=== PATIENT | male | born 1950 | race Caucasian/White ===

== ENCOUNTER 2018-11-09 16:45 | Observation (INO) | payer MEDICARE, OTHER ==
[~2018-11-09] VITALS: Ht 180.3 cm; Wt 63.2 kg
[2018-11-09 17:10] VITALS: BP 141/81
--- NOTE | 2018-11-09 17:10 | NUR ---
SOL MANUEL admitted to room 427-1, with an admitting diagnosis of , on 11/09/[address] MASTERSON OFFICE via W/C, accompanied by STAFF.SOL JACKSON introduced to surroundings, call light, bed controls, phone, TV, temperature control, lights, meal times, smoking policy, visitor policy, side rail policy, bathrooms and showers. Patient Rights given to patient in the handbook.SOL JACKSON verbalizes understanding that [facility] is not responsible for the loss or damage to any personal effects or valuables that are kept in the patients posession during their hospitalization. The following Patient Care Plans were discussed with the PT: Discharge Planning, PAIN CONTROL,IV THERAPY, and PRE-OP AND POST-OP. SOL JACKSON verbalizes understanding of Interdisciplinary Patient Education. Patient and/or family were informed about the Rapid Response Team and its purpose.
--- NOTE | 2018-11-09 17:55 | Diagnostic Imaging Report ---
INDICATION: Epistaxis and cough. TIME OF EXAM: 5:46 p.m. COMPARISON: No prior studies are available for comparison. FINDINGS: Left chest wall port has tip overlying the SVC. There is a moderate right effusion. There is infiltrate throughout the right lung. Left lung is clear. No pneumothorax is seen. IMPRESSION: Moderate right-sided effusion and right-sided pulmonary infiltrate. Dictated by: Dictated on workstation # [id number]
[2018-11-09] MEDS ORDERED: D5 1/2 NS W/KCL 20 MEQ/L 1,000 ML IV ONE (17:59)
[2018-11-09] MEDS ORDERED: D5 1/2 NS W/KCL 20 MEQ/L 1,000 ML IV SCH ×2 (18:00→20:52)
[2018-11-09 18:04] LABS: BASOPHILS % (AUTO) 1 % (0-10); EOSINOPHILS # (AUTO) 0.1 10^3/uL (0.0-0.3); EOSINOPHILS % (AUTO) 1 % (0-10); HEMATOCRIT 24 % (40-54); HEMOGLOBIN 7.9 G/DL (13.3-17.7); LYMPHOCYTES # (AUTO) 0.3 X 10^3 (1.0-4.0); LYMPHOCYTES % (AUTO) 6 % (12-44); MEAN CORPUSCULAR HEMOGLOBIN 31 PG (25-34); MEAN CORPUSCULAR HGB CONC 34 G/DL (32-36); MEAN CORPUSCULAR VOLUME 93 FL (80-99); MEAN PLATELET VOLUME 9.3 FL (7.4-10.4); MONOCYTES # (AUTO) 0.1 X 10^3 (0.0-1.0); MONOCYTES % (AUTO) 2 % (0-12); NEUTROPHILS # (AUTO) 4.9 X 10^3 (1.8-7.8); NEUTROPHILS % (AUTO) 91 % (42-75); PLATELET COUNT 169 10^3/uL (130-400); WHITE BLOOD COUNT 5.4 10^3/uL (4.3-11.0)
[2018-11-09] MEDS ORDERED: ceFAZolin INJECTION 1,000 MG ONE (18:07)
[2018-11-09] MEDS ORDERED: WATER (STERILE) FOR INJECTION 10 ML ONE (18:07)
[2018-11-09 18:22] LABS: BUN/CREATININE RATIO 26; CALCIUM 8.1 MG/DL (8.5-10.1); CARBON DIOXIDE 19 MMOL/L (21-32); CHLORIDE 107 MMOL/L (98-107); CREATININE SERUM 0.53 MG/DL (0.60-1.30); GFR ESTIMATED > 60; GLUCOSE 76 MG/DL (70-105); POTASSIUM 3.7 MMOL/L (3.6-5.0); SODIUM 135 MMOL/L (135-145)
[2018-11-09 18:31] LABS: EOSINOPHILS % (MANUAL) 2 %; LYMPHOCYTES % (MANUAL) 5 %; MONOCYTES % (MANUAL) 2 %; NEUTROPHILS % (MANUAL) 91 %
[2018-11-09 18:32] LABS: HYPOCHROMASIA MODERATE
--- OUTSIDE RECORDS SUMMARY | 2018-11-09 18:39 | XMS REPORT ---
Author Author [facility] Medical Staff Organization [facility] Address [address] [place], [place] [address] Phone [phone] Care Team Providers Care Children'S Tutor Nursery Name Role Phone NAOMI GOLDSTEIN, LEDY PP [phone] Summary purpose CCDA Sent to [facility] Chief Complaint and Reason for Visit Admit Diagnosis 1 C34.2 Z68.22 Problem list No authorized problems tracked for continuity of care are available for this visit. Encounters No authorized problems tracked for encounter diagnoses are available for this visit. Medications No medications recorded for this patient visit Allergies, adverse reactions, alerts Allergen Category Ingredient Status Reaction Severity Onset *MRSA Miscellaneous *MRSA Active *MRSA Drug *MRSA Active Immunizations No immunizations recorded for this patient visit Relevant diagnostic tests and/or laboratory data No authorized results are available for this patient visit History of procedures Procedure Code Code Type Description Date Performed Performing Physician 16666 CPT-4 COMPREHEN METABOLIC PANEL 12-25-2016 [facility] LAZAR 79670 CPT-4 LACTATE (LD) (LDH) ENZYME 12-25-2016 [facility] LAZAR 85727 CPT-4 ROUTINE VENIPUNCTURE 12-25-2016 LAVELLE LAZAR 51324 CPT-4 COMPLETE CBC W/AUTO DIFF WBC 12-25-2016 LAVELLE LAZAR 91573 CPT-4 X-RAY EYE FOR FOREIGN BODY 12-25-2016 LAVELLE LAZAR 31767 CPT-4 MRI BRAIN W/O & W/DYE 12-25-2016 LAVELLE LAZAR A9579 CPT-4 ABHISHEK-BASE MR CONTRAST NOS,1ML 12-25-2016 LAVELLE LAZAR Functional status No functional or cognitive status observations are available for this visit. Vital signs No authorized vital signs are available for this visit. Social history No Social History or smoking status observations were recorded for this visit. ( Unknown if ever smoked.) Treatment Plan No treatment plan text is available for this visit. Hospital discharge instructions No discharge instruction text is available for this visit.
--- OUTSIDE RECORDS SUMMARY | 2018-11-09 18:39 | XMS REPORT ---
Author Author [facility] Medical Staff Organization [facility] Address [address] [place], [place] [address] Phone [phone] Care Team Providers Care Medical Chemist Name Role Phone JOHN GOLDSTEIN, DREW PP [phone] DREW LOPEZ MD, PP [phone] Summary purpose CCDA Sent to [facility] Chief Complaint and Reason for Visit No authorized Reason for Visit (Admitting Diagnosis) is available for this visit. Problem list No authorized problems tracked for continuity of care are available for this visit. Encounters No authorized problems tracked for encounter diagnoses are available for this visit. Medications Discharge Medications Status Medication Directions Current aspirin 325 mg tablet 325 tab(s) oral ONE TIME A DAY Current hydrochlorothiazide 25 mg tablet 25 tab(s) oral ONE TIME A DAY Current meTOPROLOL tartrate 50 mg tablet 50 tab(s) oral TWO TIMES A DAY Current simvastatin 20 mg tablet 20 tab(s) oral ONE TIME A DAY bedtime Allergies, adverse reactions, alerts Allergen Category Ingredient Status Reaction Severity Onset *MRSA Miscellaneous *MRSA Active *MRSA Drug *MRSA Active Immunizations No immunizations recorded for this patient visit Relevant diagnostic tests and/or laboratory data No authorized results are available for this patient visit History of procedures Procedure Code Code Type Description Date Performed Performing Physician 83950 CPT-4 EXC FACE-MM MALIG+CHARLES 1.1-2 06-03-2016 DREW LOPEZ 20805 CPT-4 EXC H-F-NK-SP B9+CHARLES 1.1-2 06-03-2016 DREW LOPEZ Functional status No functional or cognitive status observations are available for this visit. Vital signs Type Value Date Respirations 18 89-73-222821:08 Pulse 80 96-06-638709:08 O2 Saturation 97% 01-65-137316:08 Systolic Blood Press 128mm/HG 46-37-677562:08 Diastolic Blood Pres 89mm/HG 08-76-419423:08 Temperature (Fahr) 97.7Degrees 60-30-891244:00 Social history No Social History or smoking status observations were recorded for this visit. ( Unknown if ever smoked.) Treatment Plan No treatment plan text is available for this visit. Hospital discharge instructions Diagnosis Excision of lesions on nose and left hand Diet as tolerated Activity Level as tolerated Med Dispensed by Pro None Follow up with Dr. Lopez Appointment Date and Thursday Follow up with Dr Lopez Appointment Date and 06/11/16 at 2:45pm Wound Care Keep wound completely dry for 24 hours and then keep clean and dry. Change bandage daily and place Neosporin.
--- OUTSIDE RECORDS SUMMARY | 2018-11-09 18:39 | XMS REPORT ---
Author Author [facility] Medical Staff Organization [facility] Address [address] [place], [place] [address] Phone [phone] Care Team Providers Care Drafter Tool Design Name Role Phone LEDY SALGADO MD PP [phone] Summary purpose CCDA Sent to [facility] Chief Complaint and Reason for Visit No [...] Code Type Description Date Performed Performing Physician 93725 CPT-4 CHEST X-RAY 03-09-2017 LEDY SALGADO Functional status No functional or cognitive status [...]
--- OUTSIDE RECORDS SUMMARY | 2018-11-09 18:39 | XMS REPORT ---
Author Author [facility] Medical Staff Organization [facility] Address [address] [place], [place] [address] Phone [phone] Care Team Providers Care Data Assistant Name Role Phone JOHN GOLDSTEIN, DREW PP [phone] NAOMI GOLSDTEIN, LEDY PP [phone] Summary purpose CCDA Sent to [facility] Chief Complaint and Reason for Visit Admit Diagnosis 1 SQUAMOUS CELL CARCINOMA OF LUNG Problem list No authorized problems tracked for [...] Code Type Description Date Performed Performing Physician 17838 CPT-4 COMPREHEN METABOLIC PANEL 12-24-2016 LEDY SALGADO 30730 CPT-4 BLOOD GASES: PH, PO2 & PCO2 12-24-2016 LEDY SALGADO 82548 CPT-4 WITHDRAWAL OF ARTERIAL BLOOD 12-24-2016 LEDY SALGADO 15416 CPT-4 ASSAY OF LACTIC ACID 12-24-2016 LEDY SALGADO 14237 CPT-4 ROUTINE VENIPUNCTURE 12-24-2016 LEDY SALGADO 38056 CPT-4 COMPLETE CBC W/AUTO DIFF WBC 12-24-2016 LEDY SALGADO Functional status No functional or [...]
--- OUTSIDE RECORDS SUMMARY | 2018-11-09 18:39 | XMS REPORT ---
Author Author [facility] Medical Staff Organization [facility] Address [address] [place], [place] [address] Phone [phone] Care Team Providers Care Speech Writer Name Role Phone JOHN GOLDSTEIN, DREW PP [phone] LEDY SALGADO MD PP [phone] Summary purpose CCDA Sent to [facility] Chief Complaint and Reason for Visit Admit Diagnosis 1 LUNG CONSOLIDATION Problem list No authorized problems tracked for [...] Code Type Description Date Performed Performing Physician 35077 CPT-4 CT THORAX W/O & W/DYE 12-16-2016 LEDY SALGADO 50831 CPT-4 PROTHROMBIN TIME 12-16-2016 LEDY SALGADO 34867 CPT-4 THROMBOPLASTIN TIME, PARTIAL 12-16-2016 LEDY SALGADO 00739 CPT-4 ROUTINE VENIPUNCTURE 12-16-2016 LEDY SALGADO Q9967 CPT-4 LOCM 300-399MG/ML IODINE,1ML 12-16-2016 LEDY SALGADO J7050 CPT-4 NS SOLUTION 250 CC INFUSION 12-16-2016 LEDY SALGADO Functional status No functional or [...]
--- OUTSIDE RECORDS SUMMARY | 2018-11-09 18:39 | XMS REPORT ---
Author Author [facility] Medical Staff Organization [facility] Address [address] [place], [place] [address] Phone [phone] Care Team Providers Care Laundry Machine Operator Name Role Phone NAOMI GOLDSTEIN, LEDY PP [phone] Summary purpose CCDA Sent to [facility] Chief Complaint and Reason for Visit No [...] Code Type Description Date Performed Performing Physician 83512 CPT-4 ROUTINE VENIPUNCTURE 04-08-2017 [facility] 78735 CPT-4 LACTATE (LD) (LDH) ENZYME 04-08-2017 [facility] 09521 CPT-4 COMPREHEN METABOLIC PANEL 04-08-2017 [facility] 29018 CPT-4 BL SMEAR W/DIFF WBC COUNT 04-08-2017 [facility] 14771 CPT-4 COMPLETE CBC, AUTOMATED 04-08-2017 [facility] 91202 CPT-4 CT THORAX W/DYE 04-08-2017 [facility] Q9967 CPT-4 LOCM 300-399MG/ML IODINE,1ML 04-08-2017 [facility] Functional status No functional or cognitive status [...]
--- OUTSIDE RECORDS SUMMARY | 2018-11-09 18:40 | XMS REPORT | Continuity of Care Document ---
Author Author [facility] Organization [facility] Address [address] [place] [address] Phone Unavailable Care Team Providers Care Cognos Architect Name Role Phone DREW LOPEZ MD PCP tel: Insurance Providers Payer Name Policy Number Subscriber Name Relationship [facility] [id number] Sol Welch 19 Self / Same As Patient Advance Directives Directive Response Recorded Date/Time Living Will No 01/06/17 6:36am Power of Inter Com Servicer No 01/06/17 6:36am Problems No problem information available. Medications Current Home Medications Medication Dose Units Route Directions Days/Qty Instructions Start Date Aspirin 81 Mg 81 Mg Oral Once A Day for Blood Thinning 01/05/17 Fluticasone Propionate (Flonase) 50 Mcg/Actuation 1 [place] Nasal Once A Day for Allergies 01/05/17 Hydrochlorothiazide 25 Mg 25 Mg Oral Once A Day for Hypertension Metoprolol Tartrate (Lopressor) 50 Mg 50 Mg Oral Twice A Day for Hypertension 01/05/17 Simvastatin 5 Mg 5 Mg Oral Once A Day for High Cholestrol 01/05/17 Mirtazapine 15 Mg 15 Mg Oral Everyday At 9 Pm for Depression Amoxicillin/Potassium Clav 875-125 1 Each Oral Twice A Day for Unk 01/05/17 Social History No social history. Hospital Discharge Instructions No hospital discharge instructions. Plan of Care Discharge Date 01/06/17 8:34am Prescriptions See Medication Section Functional Status No functional status results. Allergies, Adverse Reactions, Alerts No allergy information available. Immunizations No immunization records. Vital Signs Acute Vital Signs Vital Response Date/Time Temperature (Fahrenheit) 98 degrees F (97.6 - 99.5) 01/06/2017 8:05am Temperature (Calculated Celsius) 36.6696 degrees C (36.4 - 37.5) 01/06/2017 8 :05am Temperature Source Temporal Artery Scan 01/06/2017 8:05am Pulse Pulse Rate (adult) 86 beats per minute (60 - 90) 01/06/2017 8:20am Oxygen Saturation Respiratory Rate 16 breaths per minute (12 - 24) 01/06/2017 8:20am O2 Sat by Pulse Oximetry 92 % (90 - 100) 01/06/2017 8:20am Blood Pressure 97/71 mm Hg 01/06/2017 8:20am Blood Pressure Mean 80 mm Hg 01/06/2017 8:20am Results No known relevant diagnostic tests, laboratory data and/or discharge summary. Procedures Procedure Status Date Provider(s) Insertion of tunneled catheter with subcutaneous port Active 01/06/17 TRISH PAYTON MD Encounters Encounter Location Arrival/Admit Date Discharge/Depart Date Attending Provider Departed [facility] 01/06/17 6:38am 01/06/17 8: 34am LAVELLE LAZAR V
--- OUTSIDE RECORDS SUMMARY | 2018-11-09 18:40 | XMS REPORT ---
Author Author [facility] Medical Staff Organization [facility] Address [address] [place], [place] [address] Phone [phone] Care Team Providers Care Journeyman Mechanic Name Role Phone JOHN GOLDSTEIN, DREW PP [phone] Summary purpose CCDA Sent to [facility] Chief Complaint and Reason for [...] Code Type Description Date Performed Performing Physician 60509 CPT-4 COMPREHEN METABOLIC PANEL 09-23-2016 DREW LOPEZ 33363 CPT-4 LIPID PANEL 09-23-2016 DREW LOPEZ G0103 CPT-4 PSA SCREENING 09-23-2016 DREW LOPEZ 99508 CPT-4 ASSAY OF TOTAL TESTOSTERONE 09-23-2016 DREW LOPEZ 73357 CPT-4 COMPLETE CBC W/AUTO DIFF WBC 09-23-2016 DREW LOPEZ 68380 CPT-4 ROUTINE VENIPUNCTURE 09-23-2016 DREW LOPEZ Functional status No functional or [...]
--- OUTSIDE RECORDS SUMMARY | 2018-11-09 18:40 | XMS REPORT ---
Author Author [facility] Medical Staff Organization [facility] Address [address] [place], [place] [address] Phone [phone] Care Team Providers Care Custodian Supervisor Name Role Phone JOHN GOLDSTEIN, DREW PP [phone] NAOMI GOLDSTEIN, LEDY PP [phone] Summary purpose CCDA Sent to [facility] Chief Complaint and Reason for Visit Admit Diagnosis 1 COPD NICOTINE DEPENDENCY Problem list No authorized problems tracked for [...] Code Type Description Date Performed Performing Physician 28830 CPT-4 COMPREHEN METABOLIC PANEL 12-15-2016 LEDY SALGADO 56279 CPT-4 MYCOPLASMA ANTIBODY 12-15-2016 LEDY SALGADO 61662 CPT-4 ROUTINE VENIPUNCTURE 12-15-2016 LEDY SALGADO 33007 CPT-4 COMPLETE CBC W/AUTO DIFF WBC 12-15-2016 LEDY SALGADO 52371 CPT-4 CHEST X-RAY 12-15-2016 LEDY SALGADO Functional status No functional or [...]
--- OUTSIDE RECORDS SUMMARY | 2018-11-09 18:40 | XMS REPORT ---
Author Author [facility] Medical Staff Organization [facility] Address [address] [place], [place] [address] Phone [phone] Care Team Providers Care Leather Cutter Name Role Phone DREW FERNANDES MD PP [phone] Summary purpose CCDA Sent to [facility] Chief Complaint and Reason for Visit No authorized Reason for Visit (Admitting Diagnosis) is available for this visit. Problem list No authorized problems tracked for continuity of care are available for this visit. Encounters No authorized problems tracked for encounter diagnoses are available for this visit. Medications Discharge Medications Status Medication Directions Current acyclovir 800 mg tablet 1 tab 5x/day x 5 days oral oral FIVE TIMES A DAY Current aspirin 325 mg tablet 325 tab(s) oral ONE TIME A DAY Current gabapentin 300 mg capsule 1 cap 1-3x/day oral oral BEDTIME Current hydrochlorothiazide 25 mg tablet 25 tab(s) oral ONE TIME A DAY Current meTOPROLOL tartrate 50 mg tablet 50 tab(s) oral TWO TIMES A DAY Current simvastatin 20 mg tablet 20 tab(s) oral ONE TIME A DAY bedtime Current traMADol 50 mg tablet 1 tab oral oral EVERY SIX HOURS NEEDED for pain Allergies, adverse reactions, alerts Allergen Category Ingredient Status Reaction Severity Onset *MRSA Miscellaneous *MRSA Active *MRSA Drug *MRSA Active Immunizations No immunizations recorded for this patient visit Relevant diagnostic tests and/or laboratory data No authorized results are available for this patient visit History of procedures Procedure Code Code Type Description Date Performed Performing Physician 39281 CPT-4 EMERGENCY DEPT VISIT 01-05-2016 DREW FERNANDES Functional status Cognitive Status Finding Observation Time Level of Consciousne Alert :40 Oriented to Person Yes 30-62-512140:[address] Yes :40 Oriented to Time Yes :40 Vital signs Type Value Date Respirations 20 04-23-800606:50 Pulse 69 :50 O2 Saturation 97% :50 Systolic Blood Press 151mm/HG :50 Diastolic Blood Pres 91mm/HG :50 Temperature (Fahr) 97.0Degrees :50 Height 71in :40 Weight 155LB :40 Social history Type Value Smoking Status UNKNOWN IF EVER SMOKED Treatment Plan No treatment plan text is available for this visit. Hospital discharge instructions Diagnosis Shingles Diet as tolerated Activity Level as tolerated Med Dispensed by Pro Prescriptions for Acyclovir, Gabapentin, and Tramadol were called in to [facility]. Please start these today Follow up with Dr. Fernandes Appointment Date and next week
--- OUTSIDE RECORDS SUMMARY | 2018-11-09 18:40 | XMS REPORT ---
Author Author [facility] Medical Staff Organization [facility] Address [address] [place], [place] [address] Phone [phone] Care Team Providers Care Printed Circuit Board Panels Deburrer Name Role Phone JOHN GOLDSTEIN, DREW PP [phone] LEDY SALGADO MD PP [phone] Summary purpose CCDA Sent to [facility] Chief Complaint and Reason for Visit [...] Code Type Description Date Performed Performing Physician 26093 CPT-4 BIOPSY, LUNG OR MEDIASTINUM 12-17-2016 LEDY SALGADO 14184 CPT-4 CT SCAN FOR NEEDLE BIOPSY 12-17-2016 LEDY SALGADO 60549 CPT-4 CULTURE, BACTERIA, OTHER 12-17-2016 LETA DANGELO 17649 CPT-4 CHEST X-RAY 12-17-2016 LETA DANGELO 03197 CPT-4 SMEAR, GRAM STAIN 12-17-2016 LETA DANGELO J7030 CPT-4 INFUSION, NS, 1000 CC 12-17-2016 LETA DANGELO J3010 CPT-4 FENTANYL CITRATE INJECITON 12-17-2016 LETA DANGELO Functional status No functional or cognitive status [...]
--- OUTSIDE RECORDS SUMMARY | 2018-11-09 18:40 | XMS REPORT ---
Author Author [facility] Medical Staff Organization [facility] Address [address] [place], [place] [address] Phone [phone] Care Team Providers Care Geothermal Plant Manager Name Role Phone DREW LOPEZ MD PP [phone] Summary purpose CCDA Sent to [facility] Chief Complaint and Reason for Visit No [...] Code Type Description Date Performed Performing Physician 00728 CPT-4 EMERGENCY DEPT VISIT 01-05-2016 DREW LOPEZ Functional status No functional or [...]
--- OUTSIDE RECORDS SUMMARY | 2018-11-09 18:40 | XMS REPORT ---
Author Author [facility] Medical Staff Organization [facility] Address [address] [place], [place] [address] Phone [phone] Care Team Providers Care Vp Strategic Planning Name Role Phone DREW LOPEZ MD PP [phone] DREW LOPEZ MD, PP [phone] Summary purpose CCDA Sent to [facility] Chief Complaint and Reason for Visit [...] Code Type Description Date Performed Performing Physician 11748 CPT-4 EXC FACE-MM B9+CHARLES 2.1-3 CM 11-29-2015 DREW LOPEZ 87167 CPT-4 TISSUE EXAM BY PATHOLOGIST 11-29-2015 DREW LOPEZ Functional status No functional or cognitive status observations are available for this visit. Vital signs Type Value Date Respirations 18 37-06-991168:20 Pulse 75 26-79-276124:20 O2 Saturation 93% 03-82-808820:20 Systolic Blood Press 129mm/HG 23-36-158452:20 Diastolic Blood Pres 85mm/HG 91-19-332354:20 Temperature (Fahr) 97.6Degrees 44-79-101289:23 Social history No Social History or smoking status observations were recorded for this visit. ( Unknown if ever smoked.) Treatment Plan No treatment plan text is available for this visit. Hospital discharge instructions Diagnosis Excision of lesion on left side of face Diet as tolerated Activity Level as tolerated Med Dispensed by Pro None Follow up with Dr Lopez Appointment Date and 12/04 at 3:00 pm Wound Care Keep wound completely dry for 24 hours and then keep clean and dry. Dr. Lopez will remove sutures in 1 week. Other Instructions Watch for signs of infection- such as redness, increase in pain, or fever. Notify Dr Lopez if these occur.
--- OUTSIDE RECORDS SUMMARY | 2018-11-09 18:41 | XMS REPORT | Continuity of Care Document ---
Author Author [facility] Organization [facility] Address Unknown Phone Unavailable Allergies Active Description Code Type Severity Reaction Onset Reported/Identified Relationship to Patient Clinical Status Yes No Known Medication Allergies Drug N/A N/A Yes *MRSA Miscellaneous Allergy N /A N/A 02/28/2010 Yes No Known Allergies [id number] Drug Allergy Unknown N/A 01/06/2017 Medications There is no data. 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, inc shoulder 06/03/2016 DREW LOPEZ MD L57.0 Actinic keratosis 06/03/2016 DREW LOPEZ MD L85.8 Other specified epidermal thickening 09/23/2016 DREW LOPEZ MD Z00.00 Encntr for general adult medical exam w/o abnormal findings 09/23/2016 DREW LOPEZ MD Z80.42 Family history of malignant neoplasm of prostate 12/15/2016 LEDY SALGADO MD F17.200 Nicotine dependence, unspecified, uncomplicated 12/15/2016 LEDY SALGADO MD J44.9 Chronic obstructive pulmonary disease, unspecified 12/15/2016 LEDY SALGADO MD R05 Cough 12/15/2016 LEDY SALGADO MD R07.89 Other chest pain 12/16/2016 LEDY SALGADO MD F17.200 Nicotine dependence, unspecified, uncomplicated 12/16/2016 LEDY SALGADO MD J18.1 Lobar pneumonia, unspecified organism 12/16/2016 LEDY SALGADO MD J44.9 Chronic obstructive pulmonary disease, unspecified 12/16/2016 LEDY SALGADO MD R05 Cough 12/17/2016 ANTOLIN GOLDSTEIN, LETA Casas R91.8 Other nonspecific abnormal finding of lung field 12/24/2016 LEDY SALGADO MD C34.90 Malignant neoplasm of unsp part of unsp bronchus or lung 12/25/2016 NAGI GOLDSTEIN LAVELLE V D C34.2 Malignant neoplasm of middle lobe, bronchus or lung 12/25/2016 NAGI GOLDSTEIN LAVELLE V D Z68.22 Body mass index (BMI) 22.0-22.9, adult 01/06/2017 LAZAR, LAVELLE V Other 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 NEOPLASM OF MIDDLE LOBE, BRONCHUS OR LUNG 01/27/2017 LAZAR, LAVELLE V Other 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 NEOPLASM OF MIDDLE LOBE, BRONCHUS OR LUNG 01/27/2017 LAZAR, LAVELLE V Other 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 NEOPLASM OF MIDDLE LOBE, BRONCHUS OR LUNG 01/27/2017 LAZAR, LAVELLE V Other 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 NEOPLASM OF MIDDLE LOBE, BRONCHUS OR LUNG 01/27/2017 LAZAR LAVELLE V Other D64.9 ANEMIA, UNSPECIFIED 02/10/2017 LAZAR, LAVELLE V Other 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 NEOPLASM OF MIDDLE LOBE, BRONCHUS OR LUNG 02/10/2017 LAZAR LAVELLE V Other 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 NEOPLASM OF MIDDLE LOBE, BRONCHUS OR LUNG 02/10/2017 LAZAR LAVELLE V Other 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 NEOPLASM OF MIDDLE LOBE, BRONCHUS OR LUNG 02/10/2017 LAZAR, LAVELLE V Other D64.9 ANEMIA, UNSPECIFIED 02/10/2017 LAZAR, LAVELLE V Other 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 NEOPLASM OF MIDDLE LOBE, BRONCHUS OR LUNG 02/10/2017 LAZAR, LAVELLE V Other D64.9 ANEMIA, UNSPECIFIED 02/10/2017 LAZAR, LAVELLE V Other 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 NEOPLASM OF MIDDLE LOBE, BRONCHUS OR LUNG 02/10/2017 LAZAR, LAVELLE V Other D64.9 ANEMIA, UNSPECIFIED 02/10/2017 LAZAR, LAVELLE V Other Z68.22 BODY MASS INDEX (BMI) 22.0-22.9, ADULT 02/10/2017 LAZAR, LAVELLE V Other 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 NEOPLASM OF MIDDLE LOBE, BRONCHUS OR LUNG 02/10/2017 LAZAR, LAVELLE V Other 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 NEOPLASM OF MIDDLE LOBE, BRONCHUS OR LUNG 02/10/2017 LAZAR, LAVELLE V Other 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 NEOPLASM OF MIDDLE LOBE, BRONCHUS OR LUNG 02/10/2017 LAZAR, LAVELLE V Other D64.9 ANEMIA, UNSPECIFIED 02/10/2017 LAZAR, LAVELLE V Other 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 NEOPLASM OF MIDDLE LOBE, BRONCHUS OR LUNG 02/10/2017 LAZAR, LAVELLE V Other D64.9 ANEMIA, UNSPECIFIED 02/10/2017 LAZAR, LAVELLE V Other 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 NEOPLASM OF MIDDLE LOBE, BRONCHUS OR LUNG 02/10/2017 LAZAR, LAVELLE V Other D64.9 ANEMIA, UNSPECIFIED 02/10/2017 LAZAR, LAVELLE V Other Z68.22 BODY MASS INDEX (BMI) 22.0-22.9, ADULT 02/10/2017 LAZAR, LAVELLE V Other 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 NEOPLASM OF MIDDLE LOBE, BRONCHUS OR LUNG 02/10/2017 LAZAR, LAVELLE V Other D64.9 ANEMIA, UNSPECIFIED 02/10/2017 LAZAR, LAVELLE V Other 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 NEOPLASM OF MIDDLE LOBE, BRONCHUS OR LUNG 02/10/2017 LAZAR, LAVELLE V Other D64.9 ANEMIA, UNSPECIFIED 02/10/2017 LZAAR, LAVELLE V Other Z68.22 BODY MASS INDEX (BMI) 22.0-22.9, ADULT 03/09/2017 NAOMI GOLDSTEIN, LEDY Casas C34.90 Malignant neoplasm of unsp part of unsp bronchus or lung 03/09/2017 NAOMI GOLDSTEIN, LEDY Casas R91.8 Other nonspecific abnormal finding of lung field 04/08/2017 NAGI GOLDSTEIN, LAVELLE V D C34.2 Malignant neoplasm of middle lobe, bronchus or lung 04/08/2017 NAGI GOLDSTEIN LAVELLE V D D64.9 Anemia, unspecified 07/27/2017 NAGI GOLDSTEIN LAVELLE V D C34.2 Malignant neoplasm of middle lobe, bronchus or lung 07/27/2017 NAGI GOLDSTEIN LAVELLE V D D64.9 Anemia, unspecified 08/06/2017 LETA DANGELO MD C34.2 Malignant neoplasm of middle lobe, bronchus or lung 08/06/2017 LETA DANGELO MD D64.9 Anemia, unspecified 08/06/2017 LETA DANGELO MD R79.1 Abnormal coagulation profile 08/06/2017 LETA DANGELO MD Z01.812 Encounter for preprocedural laboratory examination 09/09/2017 Other 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 NEOPLASM OF MIDDLE LOBE, BRONCHUS OR LUNG 09/09/2017 Other D64.9 ANEMIA, UNSPECIFIED 09/21/2017 SOLE CHADWICK Z87.891 Personal history of nicotine dependence 11/09/2017 P C342 Malignant neoplasm of middle lobe, bronchus or lung 11/09/2017 S J90 Pleural effusion , not elsewhere classified 02/02/2018 NAGI GOLDSTEIN LAVELLE V D C34.2 Malignant neoplasm of middle lobe, bronchus or lung 02/02/2018 NAGI GOLDSTEIN, LAVELLE V D 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 02/02/2018 NAGI GOLDSTEIN, LAVELLE V D D64.9 Anemia, unspecified 02/10/2018 LANCE SANTAMARIA MD C34.2 Malignant neoplasm of middle lobe, bronchus or lung 02/10/2018 LANCE SANTAMARIA MD C79.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 02/22/2018 NAGI GOLDSTEIN, LAVELLE V A C34.2 Malignant neoplasm of middle lobe, bronchus or lung 02/22/2018 NAGI GOLDSTEIN LAVELLE V A 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 04/05/2018 NAGI GOLDSTEIN LAVELLE V D Z45.1 Encounter for adjustment and management of infusion pump 04/20/2018 JOHN GOLDSTEIN, DREW Casas J90 Pleural effusion, not elsewhere classified 04/22/2018 LEAT DANGELO MD J90 Pleural effusion, not elsewhere classified 04/22/2018 LETA DANGELO MD Z01.818 Encounter for other preprocedural examination 05/21/2018 SOLE CHADWICK D C34.2 Malignant neoplasm of middle lobe, bronchus or lung 05/21/2018 SOLE CHADWICK D 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 06/10/2018 NAGI GOLDSTEIN LAVELLE V D C79.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 06/10/2018 NAGI GOLDSTEIN LAVELLE V D R53.83 Other fatigue 06/17/2018 NAGI GOLDSTEIN LAVELLE V D C34.2 Malignant neoplasm of middle lobe, bronchus or lung 06/17/2018 NAGI GOLDSTEIN LAVELLE V D 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 06/17/2018 NAGI GOLDSTEIN LAVELLE V D D64.9 Anemia, unspecified 06/17/2018 LAZAR MD, LAVELLE V D R53.83 Other fatigue 06/25/2018 SOLE CHADWICK C34.90 Malignant neoplasm of unsp part of unsp bronchus or lung 06/25/2018 SOLE CHADWICK 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 06/25/2018 SOLE CHADWICK C79.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 06/25/2018 SOLE CHADWICK R53.83 Other fatigue 06/26/2018 CATRACHITO OCHOA MD C34.90 Malignant neoplasm of unsp part of unsp bronchus or lung 06/26/2018 CATRACHITO OCHOA MD I31.3 Pericardial effusion (noninflammatory) 06/26/2018 CATRACHITO OCHOA MD J90 Pleural effusion, not elsewhere classified 06/26/2018 CATRACHITO OCHOA MD M53.3 Sacrococcygeal disorders, not elsewhere classified 06/26/2018 CATRACHITO OCHOA MD M89.8X9 Other specified disorders of bone, unspecified site 06/26/2018 CATRACHITO OCHOA MD R06.02 Shortness of breath 06/26/2018 CATRACHITO OCHOA MD R47.89 Other speech disturbances 06/27/2018 DREW LOPEZ MD C34.90 Malignant neoplasm of unsp part of unsp bronchus or lung 06/27/2018 DREW LOPEZ MD E78.5 Hyperlipidemia, unspecified 06/27/2018 DREW LOPEZ MD E87.1 Hypo-osmolality and hyponatremia 06/27/2018 DREW LOPEZ MD F17.200 Nicotine dependence, unspecified, uncomplicated 06/27/2018 DREW LOPEZ MD I10 Essential (primary) hypertension 06/27/2018 DREW LOPEZ MD R09.02 Hypoxemia 06/27/2018 DREW LOPEZ MD R20.0 Anesthesia of skin 06/27/2018 DREW LOPEZ MD R60.9 Edema, unspecified 06/27/2018 DREW LOPEZ MD Z23 Encounter for immunization 07/09/2018 NAGI GOLDSTEIN, LAVELLE V D C34.2 Malignant neoplasm of middle lobe, bronchus or lung 07/09/2018 NAGI GOLDSTEIN LAVELLE V D C79.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 07/09/2018 NAGI GOLDSTEIN LAVELLE V D R53.83 Other fatigue 07/21/2018 NAGI GOLDSTEIN LAVELLE V D C34.90 Malignant neoplasm of unsp part of unsp bronchus or lung 07/21/2018 NAGI GOLDSTEIN LAVELLE V D 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 07/21/2018 NAGI GOLDSTEIN LAVELLE V D C79.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 07/21/2018 NAGI GOLDSTEIN LAVELLE V D R53.83 Other fatigue 08/04/2018 NAGI GOLDSTEIN LAVELLE V D C34.2 Malignant neoplasm of middle lobe, bronchus or lung 08/04/2018 NAGI GOLDSTEIN LAVELLE V D 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 08/04/2018 NAGI GOLDSTEIN LAVELLE V D C79.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 08/04/2018 NAGI GOLDSTEIN LAVELLE V D D64.9 Anemia, unspecified 08/04/2018 NAGI GOLDSTEIN LAVELLE V D R53.83 Other fatigue 08/11/2018 NAGI GOLDSTEIN LAVELLE V D C34.92 Malignant neoplasm of unsp part of left bronchus or lung 08/11/2018 NAGI GOLDSTEIN LAVELLE V D 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 08/11/2018 NAGI GOLDSTEIN LAVELLE V D C79.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 08/11/2018 NAGI GOLDSTEIN LAVELLE V D R53.83 Other fatigue 08/16/2018 NAGI GOLDSTEIN LAVELLE V D C34.2 Malignant neoplasm of middle lobe, bronchus or lung 08/16/2018 NAGI GOLDSTEIN LAVELLE V D 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 08/16/2018 NAGI GOLDSTEIN LAVELLE V D C79.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 08/16/2018 NAGI GOLDSTEIN LAVELLE V D D64.9 Anemia, unspecified 08/16/2018 NAGI GOLDSTEIN LAVELLE V D R53.83 Other fatigue 09/01/2018 NAGI GOLDSTEIN LAVELLE V D C34.2 Malignant neoplasm of middle lobe, bronchus or lung 09/01/2018 NAGI GOLDSTEIN LAVELLE V D 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 09/01/2018 NAGI GOLDSTEIN LAVELLE V Augusto C79.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 09/01/2018 NAGI GOLDSTEIN LAVELLE V D D64.9 Anemia, unspecified 09/01/2018 NAGI GOLDSTEIN LAVELLE V D R53.83 Other fatigue 09/15/2018 NAGI GOLDSTEIN LAVELLE V D C34.2 Malignant neoplasm of middle lobe, bronchus or lung 09/15/2018 NAGI GOLDSTEIN LAVELLE V D C79.2 Secondary malignant neoplasm of skin 09/15/2018 NAGI GOLDSTEIN LAVELLE V Augusto C79.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 09/15/2018 NAGI GOLDSTEIN LAVELLE V D R53.83 Other fatigue 09/22/2018 NAGI GOLDSTEIN LAVELLE V D C34.90 Malignant neoplasm of unsp part of unsp bronchus or lung 09/22/2018 NAGI GOLDSTEIN LAVELLE V D 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 09/22/2018 NAGI GOLDSTEIN LAVELLE V Augusto C79.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 09/22/2018 NAGI GOLDSTEIN LAVELLE V D R53.83 Other fatigue 10/04/2018 Other 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 NEOPLASM OF MIDDLE LOBE, BRONCHUS OR LUNG 10/04/2018 Other C79.2 SECONDARY MALIGNANT NEOPLASM OF SKIN 10/04/2018 Other C79.51 SECONDARY MALIGNANT NEOPLASM OF BONE 10/04/2018 Other R53.83 OTHER FATIGUE 10/06/2018 NAGI GOLDSTEIN LAVELLE V D C34.2 Malignant neoplasm of middle lobe, bronchus or lung 10/06/2018 NAGI GOLDSTEIN LAVELLE V D C79.2 Secondary malignant neoplasm of skin 10/06/2018 NAGI GOLDSTEIN LAVELLE V D C79.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 10/06/2018 NAGI GOLDSTEIN LAVELLE V D R53.83 Other fatigue 10/13/2018 NAGI GOLDSTEIN LAVELLE V D C34.2 Malignant neoplasm of middle lobe, bronchus or lung 10/13/2018 NAGI GOLDSTEIN LAVELLE V D 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 10/13/2018 NAGI GOLDSTEIN, LAVELLE V D C79.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 10/13/2018 NAGI GOLDSTEIN, LAVELLE V D D64.9 Anemia, unspecified 10/13/2018 NAGI GOLDSTEIN, LAVELLE V D R53.83 Other fatigue Procedures Code Description [place] [address] CULTURE, BACTERIA, OTHER LADONNA RODRIGUEZ 02/04/2013 95811 CULTURE TYPE, IMMUNOLOGIC LADONNA RODRIGUEZ L 02/04/2013 48090 SMEAR, GRAM STAIN LADONNA RODRIGUEZ 02/04/2013 29527 ROUTINE VENIPUNCTURE JOHN GOLDSTEIN, DREW Lara 02/04/2014 83160 COMPREHEN METABOLIC PANEL JOHN GOLDSTEIN, DREW Lara 02/04/2014 73060 LIPID PANEL JOHN GOLDSTEIN, DREW Lara 02/04/2014 97488 COMPLETE CBC W/AUTO DIFF WBC JOHN GOLDSTEIN, DREW Lara 02/04/2014 G0103 PSA SCREENING JOHN GOLDSTEIN, DREW Lara 02/04/2014 81083 EXC FACE-MM B9+CHARLES 2.1-3 CM DREW LOPEZ MD 11/29/2015 42068 TISSUE EXAM BY PATHOLOGIST JOHN GOLDSTEIN, DREW Lara 11/29/2015 L9999 CINDY ALERT CODE JOHN GOLDSTEIN, DREW Lara 11/29/2015 56400 EMERGENCY DEPT VISIT DREW LOPEZ MD 01/05/2016 71329 EMERGENCY DEPT VISIT DREW LOPEZ MD 01/05/2016 03314 EXC H-F-NK-SP B9+CHARLES 1.1-2 JOHN GOLDSTEIN, DREW Lara 06/03/2016 91684 EXC FACE-MM B9+CHARLES 1.1-2 CM JOHN GOLDSTEIN, DREW Lara 06/03/2016 25672 EXC F/E/E/N/L MAL+MRG 1.1-2 DREW LOPEZ MD 06/03/2016 04763 ROUTINE VENIPUNCTURE DREW LOPEZ MD 09/23/2016 41355 COMPREHEN METABOLIC PANEL JOHN GOLDSTEIN, DREW Lara 09/23/2016 75138 LIPID PANEL JOHN GOLDSTEIN, DREW Lara 09/23/2016 64871 ASSAY OF TOTAL TESTOSTERONE DREW LOPEZ MD 09/23/2016 62751 COMPLETE CBC W/AUTO DIFF WBC DREW LOPEZ MD 09/23/2016 G0103 PSA SCREENING DREW LOPEZ MD 09/23/2016 66861 ROUTINE VENIPUNCTURE LEDY SALGADO MD 12/15/2016 56216 CHEST X-RAY 2VW FRONTAL& LATL YAJAIRA SALGADO MDWALDTj Reed 12/15/2016 57599 COMPREHEN METABOLIC PANEL YAJAIRA SALGADO MDWALDTj Reed 12/15/2016 41693 COMPLETE CBC W/AUTO DIFF WBC YAJAIRA SALGADO MDWALDTj Reed 12/15/2016 96750 MYCOPLASMA ANTIBODY YAJAIRA SALGADO MDWALDO Brianna 12/15/2016 93339 ROUTINE VENIPUNCTURE LEDY SALGADO MD 12/16/[address] THORAX W/O & W/DYE SURINDER SALGADO MDO Brianna 12/16/2016 89648 PROTHROMBIN TIME YAJAIRA SALGADO MDWALDTj Reed 12/16/2016 92549 THROMBOPLASTIN TIME PARTIAL YAJAIRA SALGADO MDWALDTj Reed 12/16/2016 J7050 NORMAL SALINE SOLUTION NADIAUS LEDY SALGADO MD 12/16/2016 Q9967 LOCM 300-399MG/ML IODINE, 1ML YAJAIRA SALGADO MDWALDTj Reed 12/16/2016 13500 PERCUT BX LUNG/MEDIASTINUM YAJAIRA SALGADO MDWALDTj Reed 12/17/2016 80038 CHEST X-RAY 1 VIEW FRONTAL LETA DANGELO MD 12/17/[address] SCAN FOR NEEDLE BIOPSY LEDY SALGADO MD 12/17/2016 62314 CULTURE OTHR SPECIMN AEROBIC LETA DANGELO MD 12/17/2016 44420 SMEAR GRAM STAIN LETA DANGELO MD 12/17/2016 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 LETA DANGELO MD 12/17/2016 J7030 NORMAL SALINE SOLUTION INFUS LETA DANGELO MD 12/17/2016 11819 ROUTINE VENIPUNCTURE LEDY SALGADO MD 12/24/2016 82543 WITHDRAWAL OF ARTERIAL BLOOD LEDY SALGADO MD 12/24/2016 36863 COMPREHEN METABOLIC PANEL LEDY SALGADO MD 12/24/2016 13999 BLOOD GASES ANY COMBINATION NAOMI GOLDSTEIN, [facility] 12/24/2016 26554 ASSAY OF LACTIC ACID NAOMI GOLDSTEIN, [facility] 12/24/2016 76431 COMPLETE CBC W/AUTO DIFF WBC NAOMI GOLDSTEIN, [facility] 12/24/2016 07504 ROUTINE VENIPUNCTURE NAGI GOLDSTEIN, [facility] V 12/25/2016 36652 X-RAY EYE FOR FOREIGN BODY NAGI GOLDSTEIN, [facility] V 12/25/2016 11312 MRI BRAIN STEM W/O & W/DYE NAGI GOLDSTEIN, [facility] V 12/25/2016 90002 COMPREHEN METABOLIC PANEL NAGI GOLDSTEIN, [facility] V 12/25/2016 07460 LACTATE (LD) (LDH) ENZYME NAGI GOLDSTEIN, [facility] V 12/25/2016 94821 COMPLETE CBC W/AUTO DIFF WBC NAGI GOLDSTEIN, [facility] V 12/25/2016 A9579 ABHISHEK-BASE MR CONTRAST NOS, 1ML NAGI GOLDSTEIN, [facility] V 12/25/2016 37634 CHEST X-RAY 2VW FRONTAL& LATL NAOMI GOLDSTEIN, [facility] 03/09/2017 74712 ROUTINE VENIPUNCTURE NAGI GOLDSTEIN, [facility] V 04/08/[address] THORAX W/DYE NAGI OGLDSTEIN, [facility] V 04/08/2017 96591 COMPREHEN METABOLIC PANEL NAGI GOLDSTEIN, [facility] V 04/08/2017 79074 LACTATE (LD) (LDH) ENZYME NAGI GOLDSTEIN, [facility] V 04/08/2017 55749 BL SMEAR W/DIFF WBC COUNT NAGI GOLDSTEIN, [facility] V 04/08/2017 14663 COMPLETE CBC AUTOMATED NAGI GOLDSTEIN, [facility] V 04/08/2017 Q9967 LOCM 300-399MG/ML IODINE, 1ML NAGI GOLDSTEIN, [facility] V 04/08/2017 01682 ROUTINE VENIPUNCTURE NAGI GOLDSTEIN, [facility] V 07/27/[address] THORAX W/DYE NAGI GOLDSTEIN, [facility] V 07/27/2017 14104 COMPREHEN METABOLIC PANEL NAGI GOLDSTEIN, [facility] V 07/27/2017 12407 LACTATE (LD) (LDH) ENZYME NAGI GOLDSTEIN, [facility] V 07/27/2017 31460 COMPLETE CBC W/AUTO DIFF WBC NAGI GOLDSTEIN, LAVELLE V 07/27/2017 Q9967 LOCM 300-399MG/ML IODINE, 1ML NAGI GOLDSTEIN, [facility] V 07/27/2017 86574 ASPIRATE PLEURA W/ IMAGING NAGI GOLDSTEIN, [facility] V 08/06/2017 01528 ROUTINE VENIPUNCTURE NAGI GOLDSTEIN, [place]ELLE V 08/06/2017 24808 GLUCOSE OTHER FLUID LETA DANGELO MD 08/06/2017 20210 LACTATE (LD) (LDH) ENZYME LETA DANGELO MD 08/06/2017 45844 ASSAY OF PROTEIN OTHER LETA DANGELO MD 08/06/2017 00442 COMPLETE CBC W/AUTO DIFF WBC NAGI GOLDSTEIN, [facility] V 08/06/2017 20632 PROTHROMBIN TIME NAGI GOLDSTEIN, [facility] V 08/06/2017 08776 THROMBOPLASTIN TIME PARTIAL NAGI GOLDSTEIN, [facility] V 08/06/2017 62336 CYTOPATH CONCENTRATE TECH NAGI GOLDSTEIN, [facility] V 08/06/2017 00000 US EXAM ABDO BACK WALL ZACARIAS SOLE CHADWICK 09/21/2017 61445 MRI BRAIN STEM W/O & W/DYE NAGI GOLDSTEIN, [facility] V 02/02/2018 A9579 ABHISHEK-BASE MR CONTRAST NOS, 1ML NAGI GOLDSTEIN, [facility] V 02/02/2018 15296 BONE IMAGING WHOLE BODY SAM GOLDSTEIN, LANCE Farris 02/10/2018 A9503 TC99M MEDRONATE SAM GOLDSTEIN, LANCE Farris 02/10/2018 59319 ROUTINE VENIPUNCTURE NAGI GOLDSTEIN, [facility] V 02/22/2018 58811 COMPREHEN METABOLIC PANEL NAGI GOLDSTEIN, [facility] V 02/22/2018 06672 LACTATE (LD) (LDH) ENZYME NAGI GOLDSTEIN, [facility] V 02/22/2018 67856 ASSAY OF TOTAL THYROXINE NAGI GOLDSTEIN, [facility] V 02/22/2018 35435 ASSAY OF FREE THYROXINE NAGI GOLDSTEIN, [facility] V 02/22/2018 56561 ASSAY THYROID STIM HORMONE NAGI GOLDSTEIN, [place] V 02/22/2018 59424 COMPLETE CBC W/AUTO DIFF WBC NAGI GOLDSTEIN, [facility] V 02/22/2018 65694 X-RAY EXAM CHEST 2 VIEWS NAGI GOLDSTEIN, [facility] V 04/05/2018 46798 X-RAY EXAM CHEST 2 VIEWS JOHN GOLDSTEIN, [facility] B 04/20/2018 57606 ASPIRATE PLEURA W/ IMAGING ANTOLIN GOLDSTEIN, LETA Shah 04/22/2018 94749 ROUTINE VENIPUNCTURE ANTOLIN GOLDSTEIN, LETA Shah 04/22/2018 10785 BL SMEAR W/DIFF WBC COUNT ANTOLIN GOLDSTEIN, LETA Shah 04/22/2018 33325 COMPLETE CBC AUTOMATED ANTOLIN GOLDSTEIN, LETA Shah 04/22/2018 18568 PROTHROMBIN TIME ANTOLIN GOLDSTEIN, LETA Shah 04/22/2018 84621 THROMBOPLASTIN TIME PARTIAL ANTOLIN GOLDSTEIN, LETA Shah 04/22/2018 77491 ROUTINE VENIPUNCTURE DARRELLRANJEET ESCALANTE SOLE D 05/21/2018 16639 METABOLIC PANEL TOTAL CA DARRELL ESCALANTE SOLE D 05/21/2018 28173 ROUTINE VENIPUNCTURE JOHN GOLDSTEIN, [facility] Jane 05/24/2018 91542 METABOLIC PANEL TOTAL CA JOHN GOLDSTEIN, [facility] B 05/24/2018 48692 ROUTINE VENIPUNCTURE NAGI GOLDSTEIN, [place]LE V 06/02/2018 72892 COMPREHEN METABOLIC PANEL NAGI GOLDSTEIN, [place] V 06/02/2018 13021 LACTATE (LD) (LDH) ENZYME NAGI GOLDSTEIN, [place] V 06/02/2018 50570 BL SMEAR W/DIFF WBC COUNT NAGI GOLDSTEIN, [place] V 06/02/2018 55282 COMPLETE CBC AUTOMATED NAGI GOLDSTEIN, [place] V 06/02/2018 36530 ROUTINE VENIPUNCTURE NAGI GOLDSTEIN, [place] V 06/10/2018 58309 COMPREHEN METABOLIC PANEL NAGI GOLDSTEIN, [place] V 06/10/2018 78486 LACTATE (LD) (LDH) ENZYME NAGI GOLDSTEIN, [place] V 06/10/2018 18906 BL SMEAR W/DIFF WBC COUNT NAGI GOLDSTEIN, [place] V 06/10/2018 72137 COMPLETE CBC AUTOMATED NAGI GOLDSTEIN, [place] V 06/10/2018 46156 ROUTINE VENIPUNCTURE NAGI GOLDSTEIN, [place] V 06/17/2018 53307 COMPREHEN METABOLIC PANEL NAGI GOLDSTEIN, [place] V 06/17/2018 68261 LACTATE (LD) (LDH) ENZYME NAGI GOLDSTEIN, [place] V 06/17/2018 33990 BL SMEAR W/DIFF WBC COUNT NAGI GOLDSTEIN, [place] V 06/17/2018 84163 COMPLETE CBC AUTOMATED NAGI GOLDSTEIN, [place] V 06/17/2018 36334 ROUTINE VENIPUNCTURE NAGI GOLDSTEIN, [facility] V 06/25/2018 74089 BL SMEAR W/DIFF WBC COUNT NAGI GOLDSTEIN, [facility] V 06/25/2018 96959 COMPLETE CBC AUTOMATED NAGI GOLDSTEIN, [facility] V 06/25/[address] HEAD/BRAIN W/O SUSIE OCHOA MD, [place] 06/26/2018 61552 X-RAY EXAM CHEST 2 VIEWS GABRIELA GOLDSTEIN, [place] Swan 06/26/[address] ANGIOGRAPHY CHEST GABRIELA GOLDSTEIN, [place] 06/26/2018 26339 COMPREHEN METABOLIC PANEL GABRIELA GOLDSTEIN, [place] 06/26/2018 63777 ASSAY OF MAGNESIUM GABRIELA GOLDSTEIN, [place] 06/26/2018 10558 ASSAY OF PHOSPHORUS GABRIELA GOLDSTEIN, [place] 06/26/2018 20393 ASSAY OF TROPONIN QUANT GABRIELA GOLDSTEIN, [place] 06/26/2018 47272 BL SMEAR W/DIFF WBC COUNT GABRIELA GOLDSTEIN, [place] 06/26/2018 74131 COMPLETE CBC AUTOMATED GABRIELA GOLDSTEIN, [place] 06/26/2018 92464 PROTHROMBIN TIME GABRIELA GOLDSTEIN, [place] 06/26/2018 90165 THROMBOPLASTIN TIME PARTIAL GABRIELA GOLDSTEIN, [place] 06/26/2018 52042 ELECTROCARDIOGRAM TRACING GABRIELA GOLDSTEIN, [place] 06/26/2018 26734 THER/PROPH/DIAG INJ IV PUSH GABRIELA GOLDSTEIN, [place] Swan 06/26/2018 88848 TX/PRO/DX INJ NEW DRUG JEAN CLAUDE OCHOA MD, [place] Swan 06/26/2018 07791 EMERGENCY DEPT VISIT GABRIELA GOLDSTEIN, [place] Swan 06/26/2018 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 INJECTION GABRIELA GOLDSTEIN, [place] 06/26/2018 Q9967 LOCM 300-399MG/ML IODINE, 1ML GABRIELA GOLDSTEIN, [place] 06/26/[address] HEAD/BRAIN W/O SUSIE OCHOA MD, [place] Swan 06/26/2018 90846 X-RAY EXAM CHEST 2 VIEWS GABRIELA GOLDSTEIN, [place] 06/26/[address] ANGIOGRAPHY CHEST GABRIELA GOLDSTEIN, [place] Swan 06/26/2018 60621 COMPREHEN METABOLIC PANEL GABRIELA GOLDSTEIN, [place] 06/26/2018 93936 ASSAY OF MAGNESIUM GABRIELA GOLDSTEIN, [place] 06/26/2018 26129 ASSAY OF PHOSPHORUS GABRIELA GOLDSTEIN, [place] 06/26/2018 74464 ASSAY OF TROPONIN QUANT GABRIELA GOLDSTEIN, [place] 06/26/2018 72850 BL SMEAR W/DIFF WBC COUNT GABRIELA GOLDSTEIN, [place] 06/26/2018 02444 COMPLETE CBC AUTOMATED GABRIELA GOLDSTEIN, [place] 06/26/2018 25793 PROTHROMBIN TIME GABRIELA GOLDSTEIN, [place] 06/26/2018 42068 THROMBOPLASTIN TIME PARTIAL GABRIELA GOLDSTEIN, CATRACHITO Swan 06/26/2018 [id number] ELECTROCARDIOGRAM TRACING GABRIELA GOLDSTEIN, CATRACHITO Swan 06/26/2018 41965 THER/PROPH/DIAG INJ IV PUSH JOHN GOLDSTEIN, DREW Lara 06/26/2018 99472 TX/PRO/DX INJ NEW DRUG JEAN CLAUDE OCHOA MD, CATRACHITO Swan 06/26/2018 84199 TX/PRO/DX INJ SAME DRUG LAMONT LOPEZ MD, DREW Lara 06/26/2018 01826 EMERGENCY DEPT VISIT GABRIELA GOLDSTEIN, CATRACHITO Swan 06/26/2018 [id number] NON-COVERED ITEM OR SERVICE JOHN GOLDSTEIN, DREW Lara 06/26/2018 G0378 HOSPITAL OBSERVATION PER HR JOHN GOLDSTEIN, DREW Lara 06/26/2018 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 INJECTION GABRIELA GOLDSTEIN, CATRACHITO Swan 06/26/2018 Q9967 LOCM 300-399MG/ML IODINE, 1ML GABRIELA GOLDSTEIN, CATRACHITO Swan 06/26/2018 93431 CCIIV4 VAC NO PRSV 0.5 ML IM JOHN GOLDSTEIN, DREW Lara 06/27/2018 45155 AIRWAY INHALATION TREATMENT JOHN GOLDSTEIN, DREW Lara 06/27/2018 06040 TX/PRO/DX INJ SAME DRUG LAMONT LOPEZ MD, DREW Lara 06/27/2018 [id number] NON-COVERED ITEM OR SERVICE JOHN GOLDSTEIN, DREW Lara 06/27/2018 G0008 ADMIN INFLUENZA VIRUS VAC DREW LOPEZ MD 06/27/2018 J1642 INJ HEPARIN SODIUM PER 10 U JOHN GOLDSTEIN, DREW Lara 06/27/2018 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 INJECTION DREW LOPEZ MD 06/27/2018 J7030 NORMAL SALINE SOLUTION INFUS JOHN GOLDSTEIN, DREW Lara 06/27/2018 42414 ROUTINE VENIPUNCTURE NAGI GOLDSTEIN, [facility] V 07/09/2018 56821 COMPREHEN METABOLIC PANEL NAGI GOLDSTEIN, [facility] V 07/09/2018 87023 LACTATE (LD) (LDH) ENZYME NAGI GOLDSTEIN, [facility] V 07/09/2018 40861 BL SMEAR W/DIFF WBC COUNT NAGI GOLDSTEIN, [facility] V 07/09/2018 77522 COMPLETE CBC AUTOMATED NAGI GOLDSTEIN, [place] V 07/09/2018 64361 ROUTINE VENIPUNCTURE NAGI GOLDSTEIN, [facility] V 07/21/2018 95869 BL SMEAR W/DIFF WBC COUNT NAGI GOLDSTEIN, [facility] V 07/21/2018 66076 COMPLETE CBC AUTOMATED NAGI GOLDSTEIN, [facility] V 07/21/2018 68111 ROUTINE VENIPUNCTURE NAGI GOLDSTEIN, [facility] V 08/04/2018 38978 BL SMEAR W/DIFF WBC COUNT NAGI GOLDSTEIN, [facility] V 08/04/2018 10696 COMPLETE CBC AUTOMATED NAGI GOLDSTEIN, [facility] V 08/04/2018 44554 ROUTINE VENIPUNCTURE NAGI GOLDSTEIN, [facility] V 08/11/2018 37897 COMPREHEN METABOLIC PANEL NAGI GOLDSTEIN, [facility] V 08/11/2018 89838 LACTATE (LD) (LDH) ENZYME NAGI GOLDSTEIN, [facility] V 08/11/2018 95372 COMPLETE CBC W/AUTO DIFF WBC NAGI GOLDSTEIN, [facility] V 08/11/[address] THORAX W/DYE NAGI GOLDSTEIN, [facility] V 08/16/2018 Q9967 LOCM 300-399MG/ML IODINE, 1ML NAGI GOLDSTEIN, [facility] V 08/16/2018 66291 ROUTINE VENIPUNCTURE NAGI GOLDSTEIN, [facility] V 09/01/2018 28014 COMPREHEN METABOLIC PANEL NAGI GOLDSTEIN, [facility] V 09/01/2018 27559 LACTATE (LD) (LDH) ENZYME NAGI GOLDSTEIN, [facility] V 09/01/2018 21348 COMPLETE CBC W/AUTO DIFF WBC NAGI GOLDSTEIN, [facility] V 09/01/2018 20163 ROUTINE VENIPUNCTURE NAGI GOLDSTEIN, [facility] V 09/15/2018 67380 BL SMEAR W/DIFF WBC COUNT NAGI GOLDSTEIN, [facility]ELLE V 09/15/2018 28736 COMPLETE CBC AUTOMATED NAGI GOLDSTEIN, [facility] V 09/15/2018 11414 ROUTINE VENIPUNCTURE NAGI GOLDSTEIN, [facility]ELLE V 09/22/2018 64145 COMPREHEN METABOLIC PANEL NAGI GOLDSTEIN, [facility] V 09/22/2018 69894 LACTATE (LD) (LDH) ENZYME NAGI GOLDSTEIN, [facility] V 09/22/2018 46865 COMPLETE CBC W/AUTO DIFF WBC NAGI GOLDSTEIN, [facility] V 09/22/2018 02955 ROUTINE VENIPUNCTURE NAGI GOLDSTEIN, [facility] V 10/06/2018 69711 BL SMEAR W/DIFF WBC COUNT NAGI GOLDSTEIN, [facility] V 10/06/2018 66222 COMPLETE CBC AUTOMATED NAGI GOLDSTEIN, [facility] V 10/06/2018 19989 ROUTINE VENIPUNCTURE NAGI GOLDSTEIN, [facility] V 10/13/2018 23241 COMPREHEN METABOLIC PANEL NAGI GOLDSTEIN, [facility] V 10/13/2018 19684 LACTATE (LD) (LDH) ENZYME NAGI GOLDSTEIN, [facility] V 10/13/2018 10719 COMPLETE CBC W/AUTO DIFF WBC NAGI GOLDSTEIN, [facility] V 10/13/2018 Results Test Result Range Wound Culture - 02/04/13 16:47 Wound Culture SMR COMPLETE BLOOD COUNT - 02/04/14 09:13 Platelet 271 10^3u 142-424 MPV 9.1 FL 9.4-12.4 Cabell # 0.90 10^3u 0.0-1.0 RBC 5.21 10^6u 4.04-6.13 [place] % 6.6 % 0-12 RDW 13.9 % 11.6-14.8 Neut # 10.23 10^3u 2.0-6.9 Neut % 75.5 % 37-80 WBC 13.55 10^3u 4.60-10.20 MCV 88.3 FL 80.0-97.0 Baso # 0.04 10^3u 0.0-0.1 Baso % 0.3 % 0-2 Eos # 0.15 10^3u 0-0.7 Eos % 1.1 % 0-7 Lymph % 16.5 % 10-50 MCHC 35.9 G/DL 31.8-35.4 MCH 31.7 PG 27.0-31.2 Lymph # 2.23 10^3u 0.6-3.4 HGB 16.5 G/DL 12.2-18.1 HCT 46.0 % 37.7-53.7 CMP - 02/04/14 09:13 Osmo Calculated 265 MOSM 261-280 Sodium 136 MMOLL 137-145 T. Protein 7.6 G/DL 6.3-8.2 Potassium 4.8 MMOLL 3.6-5.0 T Bili 0.5 MG/DL 0.2-1.3 Calcium 9.8 MG/DL 8.4-10.2 BUN 18 MG/DL 7-21 Chloride 101 MMOLL 98-107 AST 20 U/L 15-46 ALT 25 U/L 7-56 Albumin 4.2 G/DL 3.5-5.0 A/G Ratio 1.2 RATIO 1.2-2.2 Bun/Creat 26.8 RATIO 7-25 Alk Phos 60 U/L 38-126 CO2 26 MMOLL 22-30 Glucose 91 MG/DL 65-110 Globulin 3.4 2.4-3.5 Creatinine 0.7 MG/DL 0.7-1.5 Lipid Profile - 02/04/14 09:13 HDL 46.5 MG/DL 35-100 VLDL 15 0-21 Triglyceride 74 MG/DL 35-160 Cholesterol 149 MG/DL 130-200 LDL Calculated 87 0-130 PSA Screen - 02/04/14 09:13 PSA Screen 1.0 NG/ML <=4.0 Testosterone - 02/09/14 15:51 Testosterone 752.39 NG/DL 250-1100 Encounters ACCT No. Visit Date/Time Discharge Status Pt. Type Provider Facility Loc./Unit Complaint [id number] 10/13/2018 11:16:00 10/13/2018 11:16:00 DIS Outpatient NAGI GOLDSTEIN, [facility] [id number] 10/06/2018 11:36:00 10/06/2018 11:36:00 DIS Outpatient NAGI GOLDSTEIN, [facility] [id number] 09/22/2018 10:55:00 09/22/2018 10:55:00 DIS Outpatient NAGI GOLDSTEIN, [facility] [id number] 09/15/2018 10:06:00 09/15/2018 10:06:00 DIS Outpatient NAGI GOLDSTEIN, [facility] [id number] 09/01/2018 09:29:00 09/01/2018 09:29:00 DIS Outpatient NAGI GOLDSTEIN, [facility] [id number] 08/16/2018 09:02:00 08/16/2018 09:02:00 DIS Outpatient NAGI GOLDSTEIN, [facility] RAD [id number] 08/11/2018 09:33:00 08/11/2018 09:33:00 DIS Outpatient NAGI GOLDSTEIN, [facility] [id number] 08/04/2018 12:13:00 08/04/2018 12:13:00 DIS Outpatient NAGI GOLDSTEIN, [facility] [id number] 07/21/2018 15:18:00 07/21/2018 15:18:00 DIS Outpatient NAGI GOLDSTEIN, [facility] [id number] 07/09/2018 12:36:00 07/09/2018 12:36:00 DIS Outpatient NAGI GOLDSTEIN, [facility] LAB [id number] 06/26/2018 16:36:00 06/27/2018 14:55:00 DIS Inpatient DREW LOPEZ MD NS1 [id number] 06/26/2018 13:14:00 06/26/2018 16:35:00 DIS Emergency GABRIELA GOLDSTEIN, CATRACHITO Swan ER [id number] 06/25/2018 13:23:00 06/25/2018 13:23:00 DIS Outpatient [facility] [id number] 06/17/2018 12:34:00 06/17/2018 12:34:00 DIS Outpatient NAGI GOLDSTEIN, [facility] [id number] 06/10/2018 13:39:00 06/10/2018 13:39:00 DIS Outpatient NAGI GOLDSTEIN, [facility] [id number] 06/02/2018 11:59:00 06/02/2018 11:59:00 DIS Outpatient NAGI GOLDSTEIN [facility] [id number] 05/24/2018 11:28:00 05/24/2018 11:28:00 DIS Outpatient DREW LOPEZ MD LAB [id number] 05/21/2018 12:38:00 05/21/2018 12:38:00 DIS Outpatient [facility] [id number] 04/22/2018 09:54:00 04/22/2018 09:54:00 DIS Outpatient ANTOLIN GOLDSTEIN, LETA [facility] RAD [id number] 04/20/2018 11:20:00 04/20/2018 11:20:00 DIS Outpatient DREW LOPEZ MD RAD [id number] 04/05/2018 12:04:00 04/05/2018 12:04:00 DIS Outpatient NAGI GOLDSTEIN, [facility] RAD [id number] 02/22/2018 15:37:00 02/22/2018 15:37:00 DIS Outpatient NAGI GOLDSTEIN, [facility] [id number] 02/10/2018 07:53:00 02/10/2018 07:53:00 DIS Outpatient LANCE SANTAMARIA MD RAD [id number] 02/02/2018 12:17:00 02/02/2018 12:17:00 DIS Outpatient NAGI GOLDSTEIN, [facility] RAD [id number] 09/21/2017 08:04:00 09/21/2017 08:04:00 DIS Outpatient [facility] RAD [id number] 08/06/2017 08:06:00 08/06/2017 08:06:00 DIS Outpatient ANTOLIN GOLDSTEIN, [facility] RAD [id number] 07/27/2017 08:22:00 07/27/2017 08:22:00 DIS Outpatient NAGI GOLDSTEIN, [facility] RAD [id number] 04/08/2017 12:33:00 04/08/2017 12:33:00 DIS Outpatient NAGI GOLDSTEIN, [facility] RAD [id number] 03/09/2017 12:26:00 03/09/2017 12:26:00 DIS Outpatient NAOMI GOLDSTEIN, [facility] RAD [id number] 12/25/2016 10:52:00 12/25/2016 10:52:00 DIS Outpatient NAGI GOLDSTEIN, [facility] RAD [id number] 12/24/2016 15:22:00 12/24/2016 15:22:00 DIS Outpatient NAOMI GOLDSTEIN, [facility] LAB [id number] 12/17/2016 08:00:00 12/17/2016 08:00:00 DIS Outpatient ANTOLIN GOLDSTEIN, [facility] RAD [id number] 12/16/2016 11:15:00 12/16/2016 11:15:00 DIS Outpatient NAOMI GOLDSTEIN, [facility] RAD [id number] 12/15/2016 11:13:00 12/15/2016 11:13:00 DIS Outpatient NAOMI GOLDSTEIN, [facility] RAD [id number] 09/23/2016 07:21:00 09/23/2016 07:21:00 DIS Outpatient JOHN GOLDSTEIN, [facility] LAB [id number] 06/03/2016 07:54:00 06/03/2016 09:00:00 DIS Outpatient JOHN GOLDSTEIN, [facility] DAYSTA [id number] 01/05/2016 10:40:00 01/06/2016 22:18:00 DIS Emergency JOHN GOLDSTEIN, [facility] ER [id number] 01/05/2016 10:40:00 01/05/2016 10:40:00 DIS Outpatient JOHN GOLDSTEIN, [facility] OTHER [id number] 11/29/2015 08:15:00 11/29/2015 09:45:00 DIS Outpatient JOHN GOLDSTEIN, [facility] OTHER [id number] 02/09/2014 15:01:00 02/09/2014 15:38:00 DIS Outpatient JOHN GOLDSTEIN, [facility] OTHER [id number] 02/04/2014 09:04:00 02/04/2014 09:04:00 DIS Outpatient JOHN GOLDSTEIN, [facility] OTHER [id number] 02/04/2013 16:41:00 02/04/2013 16:41:00 DIS Outpatient LADONNA RODRIGUEZ [facility] OTHER [id number] 11/02/2018 11:05:00 Document Registration [id number] 10/27/2018 12:38:00 Document Registration [id number] 10/20/2018 11:12:00 Document Registration [id number] 09/02/2018 12:16:00 Document Registration [id number] 08/19/2018 17:59:00 Document Registration [id number] 08/06/2018 10:05:00 Document Registration [id number] 07/28/2018 11:38:00 Document Registration [id number] 06/28/2018 11:32:00 Document Registration [id number] 06/28/2018 09:40:00 Document Registration [id number] 04/19/2018 13:17:00 Document Registration [id number] 02/15/2018 10:51:00 Document Registration [id number] 02/18/2018 13:09:01 ACT Unknown [id number] 03/02/2018 15:43:58 03/02/2018 23:59:59 DIS Outpatient Lance Santamaria [facility] [facility] sim [id number] 02/05/2018 14:23:16 02/05/2018 23:59:59 DIS Outpatient Lance Santamaria [facility] RAD head/neck for metastatic lung c [id number] 01/02/2017 14:03:20 01/02/2017 23:59:59 CLS Outpatient LIS ACHARYA [facility] RAD chest for lung cancer [id number] 11/09/2017 16:00:00 Document Registration [id number] 06/01/2017 09:06:00 06/01/2017 23:59:59 CLS Outpatient [facility] LAB [id number] 02/25/2017 08:41:00 02/25/2017 23:59:59 CLS Outpatient [facility] LAB [id number] 02/17/2017 08:52:00 02/17/2017 23:59:59 CLS Outpatient [facility] LAB [id number] 02/10/2017 08:44:00 02/10/2017 23:59:59 CLS Outpatient [facility] LAB [id number] 02/03/2017 11:25:00 02/03/2017 23:59:59 [facility] [id number] 01/27/2017 09:50:00 01/27/2017 23:59:59 CLS Outpatient [facility] LAB [id number] 01/20/2017 13:17:00 01/20/2017 23:59:59 [facility] [id number] 01/20/2017 08:57:00 01/20/2017 23:59:59 CLS Outpatient [facility] NPLAB [id number] 01/13/2017 09:55:00 01/13/2017 23:59:59 CLS Outpatient [facility] NPLAB [id number] 01/06/2017 06:38:00 01/06/2017 08:34:00 DIS Outpatient [facility] A CATH INSERTION [id number] 10/20/2018 09:43:00 Document Registration [id number] 09/29/2018 08:55:00 Document Registration [id number] 09/08/2018 10:32:00 Document Registration [id number] 08/25/2018 09:07:00 Document Registration [id number] 08/18/2018 08:43:00 Document Registration [id number] 07/28/2018 09:20:00 Document Registration [id number] 07/23/2018 09:18:00 Document Registration [id number] 07/01/2018 14:15:00 Document Registration [id number] 04/19/2018 14:32:00 Document Registration [id number] 04/02/2018 08:44:00 Document Registration [id number] 03/12/2018 08:12:00 Document Registration [id number] 01/22/2018 08:27:00 Document Registration [id number] 01/15/2018 08:11:00 Document Registration [id number] 01/08/2018 08:19:00 Document Registration [id number] 01/01/2018 08:26:00 Document Registration [id number] 12/25/2017 08:35:00 Document Registration [id number] 12/18/2017 08:17:00 Document Registration [id number] 12/11/2017 08:30:00 Document Registration [id number] 12/04/2017 08:10:00 Document Registration [id number] 11/27/2017 08:16:00 Document Registration [id number] 11/20/2017 08:22:00 Document Registration [id number] 11/13/2017 08:11:00 Document Registration [id number] 11/06/2017 08:12:00 Document Registration [id number] 10/30/2017 08:24:00 Document Registration [id number] 10/23/2017 08:14:00 Document Registration [id number] 10/16/2017 08:33:00 Document Registration [id number] 10/09/2017 08:08:00 Document Registration [id number] 10/02/2017 08:46:00 Document Registration [id number] 09/25/2017 08:28:00 Document Registration [id number] 09/18/2017 08:53:00 Document Registration [id number] 09/17/2017 07:10:00 Document Registration [id number] 09/11/2017 08:52:00 Document Registration [id number] 09/04/2017 08:40:00 Document Registration [id number] 08/28/2017 08:31:00 Document Registration [id number] 08/21/2017 08:40:00 Document Registration [id number] 2017 08:59:00 Document Registration
[2018-11-09] MEDS ORDERED: MUPIROCIN 2% OINT 22 GM (BACTROBAN) TUBE ONE (19:28)
[2018-11-09] MEDS ORDERED: PHENYLEPHRINE 0.5% NASAL SPR (NEO-SYNEPHRINE) REG ONE (19:28)
[2018-11-09] MEDS ORDERED: LIDOCAINE/EPI 1%-1:100,000 (XYLOCAINE) 20ML ONE (19:28)
[2018-11-09] MEDS ORDERED: COCAINE HCL 4% 2 ML SYR ONE (19:28)
[2018-11-09] MEDS ORDERED: SUCCINYLCHOLINE INJ 100 MG/5 ML SYR ONE (19:36)
[2018-11-09] MEDS ORDERED: LIDOCAINE PF 2% 5 ML (XYLOCAINE) VIAL ONE (19:36)
[2018-11-09] MEDS ORDERED: fentaNYL INJECTION 100 MCG/2 ML AMP ONE (19:36)
[2018-11-09] MEDS ORDERED: proPOfol 200 MG/20 ML (DIPRIVAN) VIAL IV ONE (19:36)
[2018-11-09] MEDS ORDERED: MIDAZOLAM 2 MG/2 ML (VERSED) VIAL ONE (19:36)
[2018-11-09] MEDS ORDERED: SEVOFLURANE (ULTANE) 15 ML INHAL SOLN ONE (19:36)
[2018-11-09] MEDS ORDERED: METO-387 PO (19:59)
[2018-11-09] MEDS ORDERED: TAMS0.4C98 PO (19:59)
[2018-11-09] MEDS ORDERED: SIMV20TA3 PO (19:59)
[2018-11-09] MEDS ORDERED: MIRT15TA6 PO (19:59)
[2018-11-09] MEDS ORDERED: HYDR25TA4 PO (19:59)
[2018-11-09] MEDS ORDERED: BUDE10.2 INH (19:59)
[2018-11-09] MEDS ORDERED: PATIENT MAY USE OWN MEDS, ALL MC SCH (20:00)
--- NOTE | 2018-11-09 20:07 | Progress Note-Pre Operative ---
Pre-Operative Progress Note H&P Reviewed The H&P was reviewed, patient examined and no changes noted. Date Seen by Provider: Nov 09, 2018 Time Seen by Provider: 20:00 Date H&P Reviewed: Nov 09, 2018 Time H&P Reviewed: 20:00 Pre-Operative Diagnosis: Left Posterior Epistaxis AMA BRAVO MD Nov 09, 2018 20:07
[2018-11-09 20:25] VITALS: BP 130/76
[2018-11-09] MEDS ORDERED: LACTATED RINGERS 1,000 ML IV PRN (20:42)
--- NOTE | 2018-11-09 20:52 | Progress Note-Post Operative ---
Post-Operative Progess Note Surgeon (s)/Design Sales Consultant (s) Surgeon AMA BRAVO MD Design Sales Consultant n/a Pre-Operative Diagnosis Left Posterior Epistaxis Post-Operative Diagnosis same Post-Op Procedure Note Date of Procedure: Nov 09, 2018 Name of Procedure Performed: Endoscopic REpair of Left Posterior Epistaxis Description & Findings Description and Findings: n/a Anesthesia Type get Estimated Blood Loss minimal Packing none. Specimen(s) collected/removed none AMA BRAVO MD Nov 09, 2018 20:52
[2018-11-09] MEDS ORDERED: PHENYLEPHRINE 100 MCG/ML 10 ML (ANESTHESIA) SYR ONE (20:55)
[2018-11-09] MEDS ORDERED: PHENYLEPHRINE 0.5% NASAL SPR (NEO-SYNEPHRINE) REG PRN (21:00)
[2018-11-09] MEDS ORDERED: ACETAMINOPHEN 500 MG TAB (TYLENOL) PO PRN (21:00)
[2018-11-09] MEDS ORDERED: HYDROcodone/APAP 5 MG/325 MG (LORTAB) TAB PO PRN (21:00)
[2018-11-09] MEDS ORDERED: ceFAZolin INJECTION 1,000 MG in WATER (STERILE) FOR INJECTION 10 ML IV SCH (22:00)
--- NOTE | 2018-11-09 22:00 | NUR ---
Pt received back to floor from recovery. Report received from Carey Houston RN.
[2018-11-09 22:12] VITALS: BP 146/83
[2018-11-09] MEDS ORDERED: HYDROcodone/APAP 5 MG/325 MG (LORTAB) TAB ONE (22:21)
[2018-11-09] MEDS: HYDROcodone/APAP 5 MG/325 MG (LORTAB) TAB PO PRN (22:26)
[2018-11-09 23:14] VITALS: BP 131/74
[2018-11-10] VITALS (11 sets, daily range): BP systolic 90–124; BP diastolic 50–71
[2018-11-10] MEDS ORDERED: WATER (STERILE) FOR INJECTION 10 ML ONE (01:38)
[2018-11-10] MEDS ORDERED: ceFAZolin INJECTION 1,000 MG ONE (01:38)
[2018-11-10 04:51] LABS: BASOPHILS # (AUTO) 0.1 10^3/uL (0.0-0.1); BASOPHILS % (AUTO) 1 % (0-10); EOSINOPHILS # (AUTO) 0.1 10^3/uL (0.0-0.3); EOSINOPHILS % (AUTO) 1 % (0-10); HEMATOCRIT 21 % (40-54); LYMPHOCYTES # (AUTO) 0.4 X 10^3 (1.0-4.0); LYMPHOCYTES % (AUTO) 6 % (12-44); MEAN CORPUSCULAR HEMOGLOBIN 31 PG (25-34); MEAN CORPUSCULAR HGB CONC 34 G/DL (32-36); MEAN CORPUSCULAR VOLUME 93 FL (80-99); MEAN PLATELET VOLUME 8.8 FL (7.4-10.4); MONOCYTES # (AUTO) 0.1 X 10^3 (0.0-1.0); MONOCYTES % (AUTO) 1 % (0-12); NEUTROPHILS # (AUTO) 5.6 X 10^3 (1.8-7.8); NEUTROPHILS % (AUTO) 91 % (42-75); PLATELET COUNT 165 10^3/uL (130-400); WHITE BLOOD COUNT 6.2 10^3/uL (4.3-11.0)
--- NOTE | 2018-11-10 05:35 | Progress Note-Standard ---
Standard Progress Note Progress Notes/Assess & Plan Date Seen by a Provider: Nov 10, 2018 Time Seen by a Provider: 05:30 Progress/Assessment & Plan ENT-Ahmet NO further bleeding since surgery HGB-7.0 on 11/10-prob will need a couple of units of pRBC's-will have hopsitalists see the patient concerned that with the blood he could go into CHF which would be a problem given his lung status overall once we get blood situation taken care of then could go home from my standpoint and have him follow-up with [place] care [place]-dry no new or old blood seen Patient started out at 11 hgb and is now at 7 after bleedign has been fixed Final Diagnosis Lft Posterior Epistaxis Anemia-Acute seocndary to the epistaxis AMA BRAVO MD Nov 10, 2018 05:35
--- NOTE | 2018-11-10 05:55 | NUR ---
Verbal orders received from Dr. Leo to give 2 units of blood today with special instructions. Give both units of blood over 2 hours. Allow 2 hours between each unit of blood. Give home medication HCTZ 25mg before 1st unit of blood. Give extra dose ordered of HCTZ 25mg after 1st unit of blood is complete. Obtain repeat H&H 2 hours after 2nd unit of blood. Type and cross ordered and consent for blood and blood products obtained. Addendum: 11/10/18 at 0654 by NASEEM HERNANDEZ RN Also new orders to DC fluids and resume a regular diet.
--- NOTE | 2018-11-10 06:35 | Anesthesia-General Post-Op ---
General Patient Condition Mental Status/LOC: Same as Preop Cardiovascular: Satisfactory Nausea/Vomiting: Absent Respiratory: Satisfactory Pain: Controlled Complications: Absent Post Op Complications Complications None Follow Up Care/Instructions Patient Instructions None needed. Anesthesia/Patient Condition Patient Condition Patient is doing well, no complaints, stable vital signs, no apparent adverse anesthesia problems. No complications reported per nursing. JEFFREY MCMAHON CRNA Nov 10, 2018 06:35
[2018-11-10] MEDS: HYDROcodone/APAP 5 MG/325 MG (LORTAB) TAB PO PRN ×3 (06:37→18:17)
[2018-11-10] MEDS: HYDROCHLOROTHIAZIDE 25 MG (HCTZ) TAB PO NR ×2 (08:29→12:34)
[2018-11-10] MEDS ORDERED: NS IV 500 ML 500 ML ONE (08:30)
[2018-11-10] MEDS ORDERED: NS IV 500 ML 500 ML IV SCH (08:45)
--- NOTE | 2018-11-10 09:12 | Consultation-Hospitalist ---
HPI History of Present Illness: HPI/Chief Complaint CC: Medical management following profound epistaxis requiring 2 units of blood HPI: This is a 68yoWM who presented the the hospital following an extensive epistaxis episode with a large amount of blood loss requiring admit to hospital and transfused 2 units. Epistaxis resolved. Receiving two units of blood. Likely will go home today but in case we will restart all of his home medications including nebulizer treatments and ambulate with PT and plan for discharge either this afternoon or tomorrow. He does continue to smoke. 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 Had a bowel movement yesterday that was black with blood because of the nose bleed. Lung cancer was diagnosed two years ago. Source: patient, old records Exam Limitations: no limitations Date Seen 11/10/18 Attending Physician Michael Leo MD PCP Referring Physician Date of Admission Nov 09, 2018 at 16:45 Home Medications & Allergies Home Medications Reviewed patient Home Medication Reconciliation performed by pharmacy medication reconciliations application technician and/or nursing. Patients Allergies have been reviewed. 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) Alcohol Use: Denies Use Recreational Drug Use: No Smoking Status: Current Everyday Smoker Physical Abuse Screen: No Sexual Abuse: No Recent Foreign Travel: No Contact w/other who traveled: No Recent Infectious Disease Expo: No Immunizations Up To Date Date of Pneumonia Vaccine: May 24, 2018 Date of Influenza Vaccine: May 24, 2018 Seasonal Allergies Seasonal Allergies: Yes Past Medical History Respiratory: COPD Currently Using CPAP: No Currently Using BIPAP: No Cardiac: Hypertension Gastrointestinal: Gastroesophageal Reflux Cancer: Lung, Skin What Type of Treatment Did You: Chemotherapy, Radiation, Surgical Intervention History of Blood Disorders: No Adverse Reaction to Blood Noel: No Review of Systems Constitutional: see HPI, dizziness, weakness EENTM: no symptoms reported, epistaxis Respiratory: cough, dyspnea on exertion Cardiovascular: no symptoms reported Gastrointestinal: no symptoms reported Genitourinary: no symptoms reported Musculoskeletal: no symptoms reported Skin: no symptoms reported Psychiatric/Neurological: No Symptoms Reported All Other Systems Reviewed Negative Unless Noted: Yes Physical Exam Physical Exam Vital Signs Vital Signs - First Documented 11/09/18 11/09/18 22:12 23:40 O2 Flow Rate 4.00 FiO2 40 Capillary Refill : Height, Weight, BMI Height: 5'11.00" Weight: 139lbs. 6.0oz. 63.525354ag; 19.4 BMI Method: General Appearance: No Apparent Distress, WD/WN, Chronically ill, Thin Eyes: Bilateral Eye Normal Inspection, Bilateral Eye PERRL HEENT: PERRL/EOMI, Normal ENT Inspection, Pharynx Normal Neck: Full Range of Motion, Normal Inspection, Non Tender, Supple, Carotid Bruit Respiratory: Chest Non Tender, Normal Breath Sounds, No Accessory Muscle Use, No Respiratory Distress, Wheezing (subtle) Cardiovascular: Regular Rate, Rhythm, No Edema, No Gallop, No JVD, No Murmur, Normal Peripheral Pulses Gastrointestinal: Normal Bowel Sounds, No Organomegaly, No Pulsatile Mass, Non Tender, Soft Back: Normal Inspection, No CVA Tenderness, No Vertebral Tenderness Extremity: Normal Capillary Refill, Normal Inspection, Normal Range of Motion, Non Tender, No Calf Tenderness, No Pedal Edema Neurologic/Psychiatric: Alert, Oriented x3, No Motor/Sensory Deficits, Normal Mood/Affect Skin: Normal Color, Warm/Dry Lymphatic: No Adenopathy Results Results/Procedures Labs Laboratory Tests 11/09/18 17:54 11/10/18 04:43 11/10/18 18:20 Patient resulted labs reviewed. Assessment/Plan Assessment and Plan Assess & Plan/Chief Complaint Assessment: Profound epistaxis requiring procedure by Dr Leo Acute blood loss anemia Transfusion of blood products today 2 units Lung cancer dx 2 yrs ago Current smoker COPD HTN with current low BP holding home BP meds Plan: Home meds Hold BP med Nebs O2 Transfuse Check labs in am Diagnosis/Problems Diagnosis/Problems (1) LEFT POSTERIOR EPISTAXIS Status: Acute (2) Anemia due to acute blood loss Status: Acute (3) Transfusion of blood during current hospitalization Status: Acute (4) Lung cancer Status: Chronic Qualifiers: Laterality: unspecified laterality Lung location: unspecified part of lung Qualified Codes: C34.90 - Malignant neoplasm of unspecified part of unspecified bronchus or lung (5) Smoker Status: Chronic Clinical Quality Measures DVT/VTE Risk/Contraindication: Risk Factor Score Per Nursin RFS Level Per Nursing on Admit: 4+=Very High NICKY JO DO Nov 10, 2018 09:12
[2018-11-10] MEDS: ceFAZolin INJECTION 1,000 MG in WATER (STERILE) FOR INJECTION 10 ML IV SCH ×2 (09:29→18:40)
[2018-11-10] MEDS ORDERED: TAMS0.4C98 PO (09:42)
[2018-11-10] MEDS ORDERED: SODI1TAB16 PO (09:45)
[2018-11-10] MEDS ORDERED: NF-NACL1GT PO (09:47)
--- NOTE | 2018-11-10 09:47 | NUR ---
SPOKE WITH THE PATIENT ABOUT HIS MEDICATIONS. HE HAD HIS BOTTLES WITH HIM AND VERIFIED HOW HE TAKES THEM. HE STATES HE ONLY TAKES HIS FLOMAX NEEDED IF HE STARTS GOING TO THE BATHROOM FREQUENTLY. HE ALSO STATES HE TAKES AN OTC SALT TAB.
[2018-11-10] MEDS ORDERED: RT-ALBUTEROL/IPRATROPIUM 3 ML (DUONEB) VIAL INH ONE (11:15)
[2018-11-10] MEDS ORDERED: TAMSULOSIN 0.4 MG (FLOMAX) CAP PO PRN (11:15)
--- NOTE | 2018-11-10 12:23 | Physical Therapy Evaluation ---
PT Evaluation-General Medical Diagnosis Admission Date Nov 09, 2018 at 16:45 Medical Diagnosis: left posterior epistaxis Onset Date: Nov 09, 2018 Therapy Diagnosis Therapy Diagnosis: abn gait Height/Weight Height (Feet): 5 Height (Inches): 11.00 Weight (Pounds): 139 Weight (Ounces): 6.0 Precautions Precautions/Isolations: Fall Prevention, Standard Precautions Referral Physician: michelle Reason for Referral: Evaluation/Treatment Medical History Additional Medical History lung CA Current History Post procedure for left posterior epistaxis Reviewed History: Yes Social History Home: Multilevel Current Living Status: Spouse Entry Into Home: Stairs With Railing Prior/Core FIM Prior Level of Function Therapy Code Descriptions/Definitions Functional [place] Measure: 0=Not Assessed/NA 4=Minimal Assistance 1=Total Assistance 5=Supervision or Setup 2=Maximal Assistance 6=Modified [place] 3=Moderate Assistance 7=Complete [place] Therapy Quality Codes: 6 Independent with activity with or without an assistive device 5 Patient requires set up or clean up by helper. Patient completes activity by themselves 4 Supervision or touching assist (CGA). [place] provide cues , steadying assist 3 The helper provides less than half the effort to complete the activity 2 The helper provides more than half the effort to complete the activity 1 Dependent. The helper does all the effort to complete an activity 7 Patient refused to complete or attempt activity 9 The patient did not perform the activity before the current illness or injury 88 Not attempted due to Medical conditions or safety concerns Functional Abilities and Goals: Independent: Patient completed the activities by him/herself, with or without an assistive device, with no assistance from a helper. Needed Some Help: Patient needed partial assistance from another person to complete activities. Dependent: A helper completed the activities for the patient. Unknown: Not Applicable: Bed Mobility: 7 Transfers (B,C,W/C) (FIM): 7 Gait: 7 Indoor Mobility (Ambulation): Independent Stairs: Independent PT Evaluation-Current Subjective Agrees to PT eval. Hopes to go home today. Pt/Family Goals home today Objective Patient Orientation: Person, Place, Time, Situation Problem Solving: Good ROM/Strength ROM Lower Extremities WNL Strength Lower Extremities WNL Sensory Vision: Functional Hearing: Functional Hand Dominance: Right Sensation Right Lower Extremit: Intact Sensation Left Lower Extremity: Intact Transfers Therapy Code Descriptions/Definitions Functional [place] Measure: 0=Not Assessed/NA 4=Minimal Assistance 1=Total Assistance 5=Supervision or Setup 2=Maximal Assistance 6=Modified [place] 3=Moderate Assistance 7=Complete [place] Transfers (B, C, W/C) (FIM): 7 Gait Mode of Locomotion: Walk Anticipated Mode of Locomotion: Walk Gait (FIM): 7 Balance Sitting Static: Normal Sitting Dynamic: Normal Standing Static: Normal Standing Dynamic: Normal Treatment PT eval complete. Monitored oxygen sats throughout treatment and they were greater than 95% without oxygen on. pt sitting EOB after treatment. Assessment/Needs Pt is indep with mobility. Safe with gait and transfers. No PT indicated. Rehab Potential: Good PT Plan Treatment/Plan Treatment Plan: Discontinue PT Treatment Plan: Other Treatment Duration: Nov 10, 2018 Frequency: Estimated Hrs Per Day: Other Patient and/or Family Agrees t: Yes Safety Risks/Education Patient Education: Safety Issues Teaching Recipient: Patient Teaching Methods: Discussion Response to Teaching: Verbalize Understanding Discharge Recommendations Plan DC PT. No treatment needed Time/GCodes Time In: 1140 Time Out: 1155 Total Billed Treatment Time: 15 Total Billed Treatment visit JASMYN AVILEZ PT Nov 10, 2018 12:23
[2018-11-10] MEDS: RT-ALBUTEROL/IPRATROPIUM 3 ML (DUONEB) VIAL INH SCH ×4 (14:47→22:27)
--- NOTE | 2018-11-10 16:00 | NUR ---
DR. BARVO HERE AND INSTRUCTED PT. HE WANTED TO KEEP HIM TILL AM FOR FURTHER EVALUATION OF NOSEBLEED. NO ACTIVE BLEEDING AT THIS TIME. C/O OF NASAL FULLNESS. FACE MASK AT 6 L
[2018-11-10 18:29] LABS: HEMOGLOBIN 10.1 G/DL (13.3-17.7)
[2018-11-10] MEDS: RT-ADVAIR HFA 115/21 MCG PER PUFF IH SCH (19:14)
[2018-11-10] MEDS ORDERED: MIRTAZAPINE 15 MG (REMERON) TAB PO SCH (21:00)
[2018-11-11 00:20] VITALS: BP 105/57
[2018-11-11] MEDS: HYDROcodone/APAP 5 MG/325 MG (LORTAB) TAB PO PRN (01:46)
[2018-11-11] MEDS: ceFAZolin INJECTION 1,000 MG in WATER (STERILE) FOR INJECTION 10 ML IV SCH (01:47)
[2018-11-11] MEDS: RT-ALBUTEROL/IPRATROPIUM 3 ML (DUONEB) VIAL INH SCH ×2 (02:58→07:05)
[2018-11-11 04:00] VITALS: BP 120/72
[2018-11-11 04:50] LABS: BASOPHILS % (AUTO) 1 % (0-10); EOSINOPHILS # (AUTO) 0.1 10^3/uL (0.0-0.3); EOSINOPHILS % (AUTO) 1 % (0-10); HEMATOCRIT 27 % (40-54); HEMOGLOBIN 9.2 G/DL (13.3-17.7); LYMPHOCYTES # (AUTO) 0.3 X 10^3 (1.0-4.0); LYMPHOCYTES % (AUTO) 8 % (12-44); MEAN CORPUSCULAR HEMOGLOBIN 31 PG (25-34); MEAN CORPUSCULAR HGB CONC 34 G/DL (32-36); MEAN CORPUSCULAR VOLUME 90 FL (80-99); MONOCYTES # (AUTO) 0.1 X 10^3 (0.0-1.0); MONOCYTES % (AUTO) 2 % (0-12); NEUTROPHILS # (AUTO) 3.6 X 10^3 (1.8-7.8); NEUTROPHILS % (AUTO) 89 % (42-75); PLATELET COUNT 155 10^3/uL (130-400); RED CELL DISTRIBUTION WIDTH 17.1 % (10.0-14.5); WHITE BLOOD COUNT 4.1 10^3/uL (4.3-11.0)
[2018-11-11 05:12] LABS: ALANINE AMINOTRANSFERASE 8 U/L (0-55); ALBUMIN 2.9 GM/DL (3.2-4.5); ALKALINE PHOSPHATASE 39 U/L (40-136); BILIRUBIN,TOTAL 0.3 MG/DL (0.1-1.0); BUN/CREATININE RATIO 13; CARBON DIOXIDE 20 MMOL/L (21-32); CHLORIDE 104 MMOL/L (98-107); CREATININE SERUM 0.52 MG/DL (0.60-1.30); GFR ESTIMATED > 60; GLUCOSE 85 MG/DL (70-105); POTASSIUM 3.2 MMOL/L (3.6-5.0); SODIUM 131 MMOL/L (135-145); TOTAL PROTEIN 4.8 GM/DL (6.4-8.2)
--- NOTE | 2018-11-11 06:56 | Progress Note-Standard ---
Standard Progress Note Progress Notes/Assess & Plan Date Seen by a Provider: Nov 11, 2018 Time Seen by a Provider: 06:30 Progress/Assessment & Plan Bin NO further bleeding since surgery HGB-7.0 on 11/10-prob will need a couple of units of pRBC's-will have hopsitalists see the patient concerned that with the blood he could go into CHF which would be a problem given his lung status overall once we get blood situation taken care of then could go home from my standpoint and have him follow-up with his primary care and [facility] [place] [facility]-dry no new or old blood seen Patient started out at 11 hgb and is now at 7 after bleedign has been fixed Bin-11/11 no bleeding hgb 10.0 after two units of blood doing well will discharge after [id number] weeks [facility] epistxis discharge instructions discharge prescriptions-keflex and hydrocodone call if bleeding recurs will let DR Mauricio/Yang know what has been done while here in the hospital 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
[2018-11-11] MEDS: RT-ADVAIR HFA 115/21 MCG PER PUFF IH SCH (07:05)
[2018-11-11] MEDS ORDERED: ACHD5005 PO (07:18)
[2018-11-11] MEDS ORDERED: CEPH-507 PO (07:18)
[2018-11-11 07:45] VITALS: BP 120/72
--- NOTE | 2018-11-11 07:45 | NUR ---
SOL JACKSON demonstrates understanding of discharge instructions and accurately returns instructions upon questioning. Copy of Post-Discharge Instructions given to PT. SOL JACKSON is able to manage continuing needs after discharge. Patients belongings returned to PT. Patient discharged from [facility] on 11/11/18 at 0745. SOL JACKSON left floor via W/C, accompanied by STAFF AND FAMILY PER AUTO.
[2018-11-11] MEDS ORDERED: SODIUM CHLORIDE 1 GM TAB (NON-FORMULARY) PO SCH (09:00)
--- OUTSIDE RECORDS SUMMARY | 2018-11-16 11:40 | XMS REPORT | Continuity of Care Document ---
Author Author [facility] Organization [facility] Address Unknown Phone Unavailable Allergies Active Description Code Type Severity Reaction Onset Reported/Identified Relationship to Patient Clinical Status Yes No Known Medication Allergies Drug N/A N/A Yes *MRSA Miscellaneous Allergy N /A N/A 02/28/2010 Yes No Known Allergies [id number] Drug Allergy Unknown N/A 01/06/2017 Medications There [...] MIDDLE LOBE, BRONCHUS OR LUNG 02/10/2017 LAZAR, LAVELEL V Other D64.9 ANEMIA, UNSPECIFIED 02/10/2017 LAZAR, [...] not elsewhere classified 04/22/2018 LETA DANGELO MD J90 Pleural effusion, not elsewhere [...] 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 08/04/2018 NGAI GOLDSTEIN [place] V D C79.51 Secondary malignant [...] D R53.83 Other fatigue 08/16/2018 NAGI GOLDSTEIN [place] V D C34.2 Malignant neoplasm of middle [...] GOLDSTEIN, LAVELLE V D R53.83 Other fatigue 10/27/2018 Final C34.2 Malignant neoplasm of middle lobe, bronchus or lung 10/27/2018 Final 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 10/27/2018 Final C79.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 10/27/2018 Final D64.9 Anemia, unspecified 10/27/2018 Final R53.83 Other fatigue 11/03/2018 Final C34.90 Malignant neoplasm of unspecified part of unspecified bronchus or lung 11/03/2018 Final E87.1 Hypo- osmolality and hyponatremia 11/03/2018 Final F17.210 Nicotine dependence, cigarettes, uncomplicated 11/03/2018 Final 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) 11/03/2018 Final I10 Essential ( primary) hypertension Procedures Code [place] [address] CULTURE, BACTERIA, OTHER KAELA LADONNA ESCALANTE L 02/04/2013 25614 CULTURE TYPE, IMMUNOLOGIC KAELA ESCALANTE LADONNA L 02/04/2013 25617 SMEAR, GRAM STAIN [place]OD ROSIE ESCALANTEICA L 02/04/2013 77484 ROUTINE VENIPUNCTURE DREW LOPEZ MD 02/04/2014 35296 COMPREHEN METABOLIC PANEL DREW LOPEZ MD 02/04/2014 32222 LIPID PANEL DREW LOPEZ MD 02/04/2014 67362 COMPLETE CBC W/AUTO DIFF WBC DREW LOPEZ MD 02/04/2014 G0103 PSA SCREENING DREW LOPEZ MD 02/04/2014 79758 EXC FACE-MM B9+CHARLES 2.1-3 CM DREW LOPEZ MD 11/29/2015 79634 TISSUE EXAM BY PATHOLOGIST DREW LOPEZ MD 11/29/2015 L9999 CINDY ALERT CODE DREW LOPEZ MD 11/29/2015 95859 EMERGENCY DEPT VISIT DREW LOPEZ MD 01/05/2016 83065 EMERGENCY DEPT VISIT DREW LOPEZ MD 01/05/2016 25032 EXC H-F-NK-SP B9+CHARLES 1.1-2 JOHN GOLDSTEIN, DREW B 06/03/2016 65376 EXC FACE-MM B9+CHARLES 1.1-2 CM JOHN GOLDSTEIN, [facility] 06/03/2016 26068 EXC F/E/E/N/L MAL+MRG 1.1-2 JOHN GOLDSTEIN [facility] 06/03/2016 42830 ROUTINE VENIPUNCTURE JOHN GOLDSTEIN, [facility] 09/23/2016 36733 COMPREHEN METABOLIC PANEL [facility]2016 10887 LIPID PANEL JOHN GOLDSTEIN, [facility] 09/23/2016 41299 ASSAY OF TOTAL TESTOSTERONE JOHN GOLDSTEIN [facility] 09/23/2016 85485 COMPLETE CBC W/AUTO DIFF WBC ROLO LOPEZ MDFER Jane 09/23/2016 G0103 PSA SCREENING WENDY LOPEZ MDNIFER Jane 09/23/2016 29932 ROUTINE VENIPUNCTURE YAJAIRA SALGADO [facility] 12/15/2016 88696 CHEST X-RAY 2VW FRONTAL& LATL YAJAIRA SALGADO [facility] 12/15/2016 32709 COMPREHEN METABOLIC PANEL YAJAIRA SALGADO [facility] 12/15/2016 32932 COMPLETE CBC W/AUTO DIFF WBC NAOMI GOLDSTEIN [facility] 12/15/2016 83285 MYCOPLASMA ANTIBODY LEDY SALGADO MD 12/15/2016 17873 ROUTINE VENIPUNCTURE LEDY SALGADO MD 12/16/[address] THORAX W/O & W/DYE SURINDER SALGADO MDO Brianna 12/16/2016 60611 PROTHROMBIN TIME LEDY SALGADO MD 12/16/2016 10385 THROMBOPLASTIN TIME PARTIAL YAJAIRA SALGADO MDWALDO Brianna 12/16/2016 J7050 NORMAL SALINE SOLUTION INFUS NAOMI GOLDSTEIN, LEDY Brianna 12/16/2016 Q9967 LOCM 300-399MG/ML IODINE, 1ML LEDY SALGADO MD 12/16/2016 11681 PERCUT BX LUNG/MEDIASTINUM LEDY SALGADO MD 12/17/2016 10609 CHEST X-RAY 1 VIEW FRONTAL LETA DANGELO MD 12/17/[address] SCAN FOR NEEDLE BIOPSY NAOMI GOLDSTEIN, [facility] 12/17/2016 17027 CULTURE OTHR SPECIMN AEROBIC LETA DANGELO MD 12/17/2016 48791 SMEAR GRAM STAIN LETA DANGELO MD 12/17/2016 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 LETA DANGELO MD 12/17/2016 J7030 NORMAL SALINE SOLUTION INFUS LETA DANGELO MD 12/17/2016 40646 ROUTINE VENIPUNCTURE NAOMI GOLDSTEIN, [facility] 12/24/2016 93230 WITHDRAWAL OF ARTERIAL BLOOD NAOMI GOLDSTEIN, [facility] 12/24/2016 71466 COMPREHEN METABOLIC PANEL NAOMI GOLDSTEIN, [facility] 12/24/2016 43269 BLOOD GASES ANY COMBINATION NAOMI GOLDSTEIN, [facility] 12/24/2016 30920 ASSAY OF LACTIC ACID NAOMI GOLDSTEIN, [facility] 12/24/2016 55000 COMPLETE CBC W/AUTO DIFF WBC NAOMI GOLDSTEIN, [facility] 12/24/2016 51059 ROUTINE VENIPUNCTURE NAGI GOLDSTEIN, [facility] V 12/25/2016 02282 X-RAY EYE FOR FOREIGN BODY NAGI GOLDSTEIN, [facility] V 12/25/2016 30182 MRI BRAIN STEM W/O & W/DYE NAGI GOLDSTEIN, [facility] V 12/25/2016 96012 COMPREHEN METABOLIC PANEL NAGI GOLDSTEIN, [facility] V 12/25/2016 68923 LACTATE (LD) (LDH) ENZYME NAGI GOLDSTEIN, [place] V 12/25/2016 88671 COMPLETE CBC W/AUTO DIFF WBC NAGI GOLDSTEIN, [place] V 12/25/2016 A9579 ABHISHEK-BASE MR CONTRAST NOS, 1ML NAGI GOLDSTEIN, [place] V 12/25/2016 99595 CHEST X-RAY 2VW FRONTAL& LATL NAOMI GOLDSTEIN, LEDY C 03/09/2017 93064 ROUTINE VENIPUNCTURE NAGI GOLDSTEIN, [place] V 04/08/[address] THORAX W/DYE NAGI GOLDSTEIN, [place] V 04/08/2017 37259 COMPREHEN METABOLIC PANEL NAGI GOLDSTEIN, [place] V 04/08/2017 68002 LACTATE (LD) (LDH) ENZYME NAGI GOLDSTEIN, [place] V 04/08/2017 14946 BL SMEAR W/DIFF WBC COUNT NAGI GOLDSTEIN, [facility] V 04/08/2017 54610 COMPLETE CBC AUTOMATED NAGI GOLDSTEIN, [facility] V 04/08/2017 Q9967 LOCM 300-399MG/ML IODINE, 1ML NAGI GOLDSTEIN, [facility] V 04/08/2017 40646 ROUTINE VENIPUNCTURE NAGI GOLDSTEIN, [facility] V 07/27/[address] THORAX W/DYE NAGI GOLDSTEIN, [facility] V 07/27/2017 31175 COMPREHEN METABOLIC PANEL NAGI GOLDSTEIN, [facility] V 07/27/2017 72760 LACTATE (LD) (LDH) ENZYME NAGI GOLDSTEIN, [facility] V 07/27/2017 01718 COMPLETE CBC W/AUTO DIFF WBC NAGI GOLDSTEIN, [facility] V 07/27/2017 Q9967 LOCM 300-399MG/ML IODINE, 1ML NAGI GOLDSTEIN, [facility] V 07/27/2017 97193 ASPIRATE PLEURA W/ IMAGING NAGI GOLDSTEIN, [facility] V 08/06/2017 93764 ROUTINE VENIPUNCTURE NAGI GOLDSTEIN, [facility] V 08/06/2017 22267 GLUCOSE OTHER FLUID LETA DANGELO MD 08/06/2017 68048 LACTATE (LD) (LDH) ENZYME LETA DANGELO MD 08/06/2017 19680 ASSAY OF PROTEIN OTHER LETA DANGELO MD 08/06/2017 18951 COMPLETE CBC W/AUTO DIFF WBC NAGI GOLDSTEIN, [facility] V 08/06/2017 06201 PROTHROMBIN TIME NAGI GOLDSTEIN, [facility] V 08/06/2017 00925 THROMBOPLASTIN TIME PARTIAL NAGI GOLDSTEIN, [facility] V 08/06/2017 42363 CYTOPATH CONCENTRATE TECH NAGI GOLDSTEIN, [facility] V 08/06/2017 50245 US EXAM ABDO BACK WALL ZACARIAS [place] 09/21/2017 31702 MRI BRAIN STEM W/O & W/DYE NAGI GOLDSTEIN, [facility] V 02/02/2018 A9579 ABHISHEK-BASE MR CONTRAST NOS, 1ML NAGI GOLDSTEIN, [facility] V 02/02/2018 06542 BONE IMAGING WHOLE BODY LANCE SANTAMARIA MD 02/10/2018 A9503 TC99M MEDRONATE LANCE SANTAMARIA MD 02/10/2018 47408 ROUTINE VENIPUNCTURE NAGI GOLDSTEIN, [place] V 02/22/2018 60930 COMPREHEN METABOLIC PANEL NAGI GOLDSTEIN, [place] V 02/22/2018 98844 LACTATE (LD) (LDH) ENZYME NAGI GOLDSTEIN, [facility] V 02/22/2018 10868 ASSAY OF TOTAL THYROXINE NAGI GOLDSTEIN, [facility] V 02/22/2018 77483 ASSAY OF FREE THYROXINE NAGI GOLDTSEIN, [facility] V 02/22/2018 12210 ASSAY THYROID STIM HORMONE NAGI GOLDSTEIN, [facility] V 02/22/2018 14115 COMPLETE CBC W/AUTO DIFF WBC NAGI GOLDSTEIN, [facility] V 02/22/2018 62436 X-RAY EXAM CHEST 2 VIEWS NAGI GOLDSTEIN, [facility] V 04/05/2018 65276 X-RAY EXAM CHEST 2 VIEWS JOHN GOLDSTEIN, DREW Jane 04/20/2018 97651 ASPIRATE PLEURA W/ IMAGING ANTOLIN GOLDSTEIN, LETA Shah 04/22/2018 05023 ROUTINE VENIPUNCTURE ANTOLIN GOLDSTEIN, LETA Shah 04/22/2018 94697 BL SMEAR W/DIFF WBC COUNT ANTOLIN GOLDSTEIN, LETA Shah 04/22/2018 60442 COMPLETE CBC AUTOMATED ANTOLIN GOLDSTEIN, LETA Shah 04/22/2018 28878 PROTHROMBIN TIME ANTOLIN GOLDSTEIN, LETA Shah 04/22/2018 67186 THROMBOPLASTIN TIME PARTIAL ANTOLIN GOLDSTEIN, LETA Shah 04/22/2018 60469 ROUTINE VENIPUNCTURE [place] 05/21/2018 78102 METABOLIC PANEL TOTAL CA [place] 05/21/2018 38469 ROUTINE VENIPUNCTURE JOHN GOLDSTEIN, DREW Lara 05/24/2018 81574 METABOLIC PANEL TOTAL CA JOHN GOLDSTEIN, DREW Lara 05/24/2018 15552 ROUTINE VENIPUNCTURE NAGI GOLDSTEIN, [place] V 06/02/2018 73787 COMPREHEN METABOLIC PANEL NAGI GOLDSTEIN, [place] V 06/02/2018 19082 LACTATE (LD) (LDH) ENZYME NAGI GOLDSTEIN, [place] V 06/02/2018 30657 BL SMEAR W/DIFF WBC COUNT NAGI GOLDSTEIN, [facility] V 06/02/2018 43295 COMPLETE CBC AUTOMATED NAGI GOLDSTEIN, [facility] V 06/02/2018 59582 ROUTINE VENIPUNCTURE NAGI GOLDSTEIN, [place] V 06/10/2018 39319 COMPREHEN METABOLIC PANEL NAGI GOLDSTEIN, [place] V 06/10/2018 24349 LACTATE (LD) (LDH) ENZYME NAGI GOLDSTEIN, [facility] V 06/10/2018 41308 BL SMEAR W/DIFF WBC COUNT NAGI GOLDSTEIN, [facility] V 06/10/2018 07942 COMPLETE CBC AUTOMATED NAGI GOLDSTEIN, [facility] V 06/10/2018 03187 ROUTINE VENIPUNCTURE NAGI GOLDSTEIN, [facility] V 06/17/2018 52485 COMPREHEN METABOLIC PANEL NAGI GOLDSTEIN, [facility] V 06/17/2018 70412 LACTATE (LD) (LDH) ENZYME NAGI GOLDSTEIN, [facility] V 06/17/2018 08108 BL SMEAR W/DIFF WBC COUNT NAGI GOLDSTEIN, [facility] V 06/17/2018 63185 COMPLETE CBC AUTOMATED NAGI GOLDSTEIN, [facility] V 06/17/2018 49112 ROUTINE VENIPUNCTURE NAGI GOLDSTEIN, [facility] V 06/25/2018 65945 BL SMEAR W/DIFF WBC COUNT NAGI GOLDSTEIN, [facility] V 06/25/2018 76850 COMPLETE CBC AUTOMATED NAGI GOLDSTEIN, [facility] V 06/25/[address] HEAD/BRAIN W/O DYE GABRIELA GOLDSTEIN, CATRACHITO Swan 06/26/2018 15294 X-RAY EXAM CHEST 2 VIEWS GABRIELA GOLDSTEIN, CATR[place]O Swan 06/26/[address] ANGIOGRAPHY CHEST GABRIELA GOLDSTEIN, [place]O Swan 06/26/2018 73133 COMPREHEN METABOLIC PANEL GABRIELA GOLDSTEIN, [place] Swan 06/26/2018 60607 ASSAY OF MAGNESIUM GABRIELA GOLDSTEIN, [place] Swan 06/26/2018 91528 ASSAY OF PHOSPHORUS GABRIELA GOLDSTEIN, [place] Swan 06/26/2018 22623 ASSAY OF TROPONIN QUANT GABRIELA GOLDSTEIN, [place]O Swan 06/26/2018 49845 BL SMEAR W/DIFF WBC COUNT GABRIELA GOLDSTEIN, [place] Swan 06/26/2018 21852 COMPLETE CBC AUTOMATED GABRIELA GOLDSTEIN, [place] Swan 06/26/2018 60067 PROTHROMBIN TIME GABRIELA GOLDSTEIN, [place] Swan 06/26/2018 27189 THROMBOPLASTIN TIME PARTIAL GABRIELA GOLDSTEIN, [place] Swan 06/26/2018 93521 ELECTROCARDIOGRAM TRACING GABRIELA GOLDSTEIN, [place] Swan 06/26/2018 40537 THER/PROPH/DIAG INJ IV PUSH GABRIELA GOLDSTEIN, [place]O Swan 06/26/2018 76048 TX/PRO/DX INJ NEW DRUG JEAN CLAUDE OCHOA MD, [place] Sosa 06/26/2018 01028 EMERGENCY DEPT VISIT GABRIELA GOLDSTEIN, [place] Swan 06/26/2018 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 SAMINA OCHOA MD, [place] Sosa 06/26/2018 Q9967 LOCM 300-399MG/ML IODINE, 1ML GABRIELA GOLDSTEIN, CATRACH[place]O Sosa 06/26/[address] HEAD/BRAIN W/O DYE GABRIELA GOLDSTEIN, [place]RACH[place]O Swan 06/26/2018 08672 X-RAY EXAM CHEST 2 VIEWS GABRIELA GOLDSTEIN, [place] Swan 06/26/[address] ANGIOGRAPHY CHEST GABRIELA GOLDSTEIN, [place]O Swan 06/26/2018 41542 COMPREHEN METABOLIC PANEL GABRIELA GOLDSTEIN, [place] Swan 06/26/2018 70512 ASSAY OF MAGNESIUM GABRIELA GOLDSTEIN, [place] Swan 06/26/2018 41660 ASSAY OF PHOSPHORUS GABRIELA GOLDSTEIN, CATRACH[place]O Sosa 06/26/2018 19829 ASSAY OF TROPONIN QUANT GABRIELA GOLDSTEIN, [place] Swan 06/26/2018 38053 BL SMEAR W/DIFF WBC COUNT GABRIELA GOLDSTEIN, [place] Swan 06/26/2018 51417 COMPLETE CBC AUTOMATED GABRIELA GOLDSTEIN, CATRACH[place]O Sosa 06/26/2018 38046 PROTHROMBIN TIME GABRIELA GOLDSTEIN, [place]O Sosa 06/26/2018 40850 THROMBOPLASTIN TIME PARTIAL GABRIELA GOLDSTEIN, [place]O Sosa 06/26/2018 42029 ELECTROCARDIOGRAM TRACING GABRIELA GOLDSTEIN, [place] Swan 06/26/2018 25903 THER/PROPH/DIAG INJ IV PUSH JOHN GOLDSTEIN, DREW Lara 06/26/2018 10196 TX/PRO/DX INJ NEW DRUG JEAN CLAUDE OCHOA MD, [place] Swan 06/26/2018 39654 TX/PRO/DX INJ SAME DRUG LAMONT LOPEZ MD, DREW Lara 06/26/2018 38684 EMERGENCY DEPT VISIT GABRIELA GOLDSTEIN, [place] Swan 06/26/2018 A9270 NON-COVERED ITEM OR SERVICE JOHN GOLDSTEIN, DREW Lara 06/26/2018 G0378 HOSPITAL OBSERVATION PER HR JOHN GOLDSTEIN, DREW Lara 06/26/2018 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 INJECTION GABRIELA GOLDSTEIN, [place]O Swan 06/26/2018 Q9967 LOCM 300-399MG/ML MELANY, 1MSosa OCHOA MD, CATR[place]O Swan 06/26/2018 54647 CCIIV4 VAC NO PRSV 0.5 ML IM JOHN GOLDSTEIN, DREW Lara 06/27/2018 24830 AIRWAY INHALATION TREATMENT ROLO LOPEZ MDFER Jane 06/27/2018 46976 TX/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 JOHN GOLDSTEIN DREW Jane 06/27/2018 A9270 NON-COVERED ITEM OR SERVICE [facility] 06/27/2018 G0008 ADMIN INFLUENZA VIRUS VAC [facility] 06/27/2018 J1642 INJ HEPARIN SODIUM PER 10 U ROLO LOPEZ MDFER Jane 06/27/2018 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 INJECTION [facility] 06/27/2018 J7030 NORMAL SALINE SOLUTION INFUS JOHN GOLDSTEIN, DREW B 06/27/2018 12707 ROUTINE VENIPUNCTURE NAGI GOLDSTEIN, [facility] V 07/09/2018 03940 COMPREHEN METABOLIC PANEL NAGI GOLDSTEIN, [facility] V 07/09/2018 84282 LACTATE (LD) (LDH) ENZYME NAGI GOLDSTEIN, [facility] V 07/09/2018 58297 BL SMEAR W/DIFF WBC COUNT NAGI GOLDSTEIN, [facility] V 07/09/2018 10979 COMPLETE CBC AUTOMATED NAGI GOLDSTEIN, [facility] V 07/09/2018 23509 ROUTINE VENIPUNCTURE NAGI GOLDSTEIN, [facility] V 07/21/2018 87551 BL SMEAR W/DIFF WBC COUNT NAGI GOLDSTEIN, [facility] V 07/21/2018 41538 COMPLETE CBC AUTOMATED NAGI GOLDSTEIN, [facility] V 07/21/2018 87878 ROUTINE VENIPUNCTURE NAGI GOLDSTEIN, [facility] V 08/04/2018 23604 BL SMEAR W/DIFF WBC COUNT NAGI GOLDSTEIN, [facility] V 08/04/2018 05479 COMPLETE CBC AUTOMATED NAGI GOLDSTEIN, [facility] V 08/04/2018 25223 ROUTINE VENIPUNCTURE NAGI GOLDSTEIN, [facility] V 08/11/2018 45059 COMPREHEN METABOLIC PANEL NAGI GOLDSTEIN, [place] V 08/11/2018 00374 LACTATE (LD) (LDH) ENZYME NAGI GOLDSTEIN, [facility] V 08/11/2018 28963 COMPLETE CBC W/AUTO DIFF WBC NAGI GOLDSTEIN, [place] V 08/11/[address] THORAX W/DYE NAGI GOLDSTEIN, [place] V 08/16/2018 Q9967 LOCM 300-399MG/ML IODINE, 1ML NAGI GODLSTEIN, [facility] V 08/16/2018 92545 ROUTINE VENIPUNCTURE NAGI GOLDSTEIN, [facility] V 09/01/2018 08181 COMPREHEN METABOLIC PANEL NAGI GOLDSTEIN, [facility] V 09/01/2018 34925 LACTATE (LD) (LDH) ENZYME NAGI GOLDSTEIN, [facility] V 09/01/2018 68000 COMPLETE CBC W/AUTO DIFF WBC NAIG GOLDSTEIN, [facility] V 09/01/2018 37155 ROUTINE VENIPUNCTURE NAGI GOLDSTEIN, [facility] V 09/15/2018 39791 BL SMEAR W/DIFF WBC COUNT NAGI GOLDSTEIN, [facility] V 09/15/2018 46795 COMPLETE CBC AUTOMATED NAGI GOLDSTEIN, [facility] V 09/15/2018 66133 ROUTINE VENIPUNCTURE NAGI GOLDSTEIN, [facility] V 09/22/2018 56012 COMPREHEN METABOLIC PANEL NAGI GOLDSTEIN, [facility] V 09/22/2018 53985 LACTATE (LD) (LDH) ENZYME NAGI GOLDSTEIN, [facility] V 09/22/2018 20701 COMPLETE CBC W/AUTO DIFF WBC NAGI GOLDSTEIN, [facility] V 09/22/2018 52646 ROUTINE VENIPUNCTURE NAGI GOLDSTEIN, [facility] V 10/06/2018 10661 BL SMEAR W/DIFF WBC COUNT NAGI GOLDSTEIN, [facility] V 10/06/2018 88159 COMPLETE CBC AUTOMATED NAGI GOLDSTEIN, [facility] V 10/06/2018 04574 ROUTINE VENIPUNCTURE NAGI GOLDSTEIN, [facility] V 10/13/2018 65806 COMPREHEN METABOLIC PANEL NAGI GOLDSTEIN, [facility] V 10/13/2018 55302 LACTATE (LD) (LDH) ENZYME NAGI GOLDSTEIN, [facility] V 10/13/2018 00010 COMPLETE CBC W/AUTO DIFF WBC NAGI GOLDSTEIN, [facility] V 10/13/2018 Results Test Result Range Wound Culture - 02/04/13 16:47 Wound Culture SMR COMPLETE BLOOD COUNT - 02/04/14 09:13 Platelet 271 10^3u 142-424 MPV 9.1 FL 9.4-12.4 [place] # 0.90 10^3u 0.0-1.0 RBC 5.21 10^6u 4.04-6.13 [place] % 6.6 % 0-12 RDW 13.9 % [...] Status Pt. Type Provider Facility Loc./Unit Complaint [id number] 10/13/2018 11:16:00 10/13/2018 11:16:00 DIS Outpatient LAZAR MD, [facility] [id number] 10/06/2018 11:36:00 10/06/2018 11:36:00 DIS Outpatient NAGI GOLDSTEIN, [place] [id number] 09/22/2018 10:55:00 09/22/2018 10:55:00 DIS Outpatient NAGI GOLDSTEIN, [place] [id number] 09/15/2018 10:06:00 09/15/2018 10:06:00 DIS Outpatient NAGI GOLDSTEIN, [place] [facility] [id number] 09/01/2018 09:29:00 09/01/2018 09:29:00 DIS Outpatient NAGI GOLDSTEIN, [place] [id number] 08/16/2018 09:02:00 08/16/2018 09:02:00 DIS Outpatient NAGI GOLDSTEIN, [place] [id number] 08/11/2018 09:33:00 08/11/2018 09:33:00 DIS Outpatient NAGI GOLDSTEIN [place] [facility] [id number] 08/04/2018 12:13:00 08/04/2018 12:13:00 DIS Outpatient NAGI GOLDSTEIN, [place] [id number] 07/21/2018 15:18:00 07/21/2018 15:18:00 DIS Outpatient NAGI GOLDSTEIN, [place] [facility] [id number] 07/09/2018 12:36:00 07/09/2018 12:36:00 DIS Outpatient NAGI GOLDSTEIN, [place] [facility] [id number] 06/26/2018 16:36:00 06/27/2018 14:55:00 DIS Inpatient JOHN GOLDSTEIN, DREW Lara [facility] [id number] 06/26/2018 13:14:00 06/26/2018 16:35:00 DIS Emergency GABRIELA GOLDSTEIN, CATR[place]O Swan ER [id number] 06/25/2018 13:23:00 06/25/2018 13:23:00 DIS Outpatient [facility] [id number] 06/17/2018 12:34:00 06/17/2018 12:34:00 DIS Outpatient NAGI GOLDSTEIN, [place] [facility] [id number] 06/10/2018 13:39:00 06/10/2018 13:39:00 DIS Outpatient NAGI GOLDSTEIN, [place] [id number] 06/02/2018 11:59:00 06/02/2018 11:59:00 DIS Outpatient NAGI GOLDSTEIN [place] [facility] [id number] 05/24/2018 11:28:00 05/24/2018 11:28:00 DIS Outpatient DREW LOPEZ MD LAB [id number] 05/21/2018 12:38:00 05/21/2018 12:38:00 DIS Outpatient [facility] [id number] 04/22/2018 09:54:00 04/22/2018 09:54:00 DIS Outpatient ANTOLIN GOLDSTEIN, LETA Shah RAD [id number] 04/20/2018 11:20:00 04/20/2018 11:20:00 DIS Outpatient DREW LOPEZ MD RAD [id number] 04/05/2018 12:04:00 04/05/2018 12:04:00 DIS Outpatient NAGI GOLDSTEIN, [place] [facility] RAD [id number] 02/22/2018 15:37:00 02/22/2018 15:37:00 DIS Outpatient NAGI GOLDSTEIN, [place] [facility] [id number] 02/10/2018 07:53:00 02/10/2018 07:53:00 DIS Outpatient LANCE SANTAMARIA MD RAD [id number] 02/02/2018 12:17:00 02/02/2018 12:17:00 DIS Outpatient NAGI GOLDSTEIN, [place] [id number] 09/21/2017 08:04:00 09/21/2017 08:04:00 DIS Outpatient [facility] RAD [id number] 08/06/2017 08:06:00 08/06/2017 08:06:00 DIS Outpatient LETA DANGELO MD [facility] RAD [id number] 07/27/2017 08:22:00 07/27/2017 08:22:00 DIS Outpatient NAGI GOLDSTEIN, [place] V [facility] RAD [id number] 04/08/2017 12:33:00 04/08/2017 12:33:00 DIS Outpatient NAGI GOLDSTEIN, LAVELLE V [facility] RAD [id number] 03/09/2017 12:26:00 03/09/2017 12:26:00 DIS Outpatient NAOMI GOLDSTEIN, LEDY [facility] RAD [id number] 12/25/2016 10:52:00 12/25/2016 10:52:00 DIS Outpatient NAGI GOLDSTEIN, LAVELLE V [facility] RAD [id number] 12/24/2016 15:22:00 12/24/2016 15:22:00 DIS Outpatient NAOMI GOLDSTEIN, [facility] LAB [id number] 12/17/2016 08:00:00 12/17/2016 08:00:00 DIS Outpatient ANTOLIN GOLDSTEIN, [facility] RAD [id number] 12/16/2016 11:15:00 12/16/2016 11:15:00 DIS Outpatient NAOMI GOLDSTENI, [facility] RAD [id number] 12/15/2016 11:13:00 12/15/2016 11:13:00 DIS Outpatient NAOMI GOLDSTEIN, [facility] RAD [id number] 09/23/2016 07:21:00 09/23/2016 07:21:00 DIS Outpatient JOHN GOLDSTEIN, [facility] LAB [id number] 06/03/2016 07:54:00 06/03/2016 09:00:00 DIS Outpatient JOHN GOLDSTEIN, [facility] DAYSTA [id number] 01/05/2016 10:40:00 01/06/2016 22:18:00 DIS Emergency JOHN GOLDSTEIN, [facility] ER [id number] 01/05/2016 10:40:00 01/05/2016 10:40:00 DIS Outpatient JOHN GOLDSTEIN, [facility] OTHER [id number] 11/29/2015 08:15:00 11/29/2015 09:45:00 DIS Outpatient JOHN GOLDSTEIN, [facility] OTHER [id number] 02/09/2014 15:01:00 02/09/2014 15:38:00 DIS Outpatient JOHN GOLDSTEIN, [facility] OTHER [id number] 02/04/2014 09:04:00 02/04/2014 09:04:00 DIS Outpatient JOHN GOLDSTEIN, [facility] OTHER [id number] 02/04/2013 16:41:00 02/04/2013 16:41:00 DIS Outpatient LADONNA RODRIGUEZ [facility] ABILIO [id number] 11/08/2018 12:36:00 Document Registration [id number] 11/08/2018 09:22:00 Document Registration [id number] 11/08/2018 05:43:00 Document Registration [id number] 11/02/2018 11:05:00 Document Registration [id number] 10/27/2018 12:38:00 Document Registration [id number] 10/20/2018 11:12:00 Document Registration [id number] 09/02/2018 12:16:00 Document Registration [id number] 08/19/2018 17:59:00 Document Registration [id number] 08/06/2018 10:05:00 Document Registration [id number] 07/28/2018 11:38:00 Document Registration [id number] 06/28/2018 11:32:00 Document Registration [id number] 06/28/2018 09:40:00 Document Registration [id number] 04/19/2018 13:17:00 Document Registration [id number] 02/15/2018 10:51:00 Document Registration [id number] 02/18/2018 13:09:01 ACT Unknown [id number] 03/02/2018 15:43:58 03/02/2018 23:59:59 DIS Outpatient Lance Santamaria [facility] [place] sim [id number] 02/05/2018 14:23:16 02/05/2018 23:59:59 DIS Outpatient Lance Santamaria [facility] RAD head/neck for metastatic lung c [id number] 01/02/2017 14:03:20 01/02/2017 23:59:59 CLS Outpatient LIS ACHARYA [facility] RAD chest for lung cancer [id number] 11/09/2017 16:00:00 Document Registration [id number] 06/01/2017 09:06:00 06/01/2017 23:59:59 CLS Outpatient [facility] LAB [id number] 02/25/2017 08:41:00 02/25/2017 23:59:59 CLS Outpatient [facility] LAB [id number] 02/17/2017 08:52:00 02/17/2017 23:59:59 CLS Outpatient [facility] LAB [id number] 02/10/2017 08:44:00 02/10/2017 23:59:59 CLS Outpatient [facility] LAB [id number] 02/03/2017 11:25:00 02/03/2017 23:59:59 CLS Outpatient [facility] LAB [id number] 01/27/2017 09:50:00 01/27/2017 23:59:59 CLS Outpatient [facility] LAB [id number] 01/20/2017 13:17:00 01/20/2017 23:59:59 CLS Outpatient [facility] LAB [id number] 01/20/2017 08:57:00 01/20/2017 23:59:59 [facility] Outpatient [facility] NPLAB [id number] 01/13/2017 09:55:00 01/13/2017 23:59:59 [facility] Outpatient [facility] NPLAB [id number] 01/06/2017 06:38:00 01/06/2017 08:34:00 [facility] Outpatient [facility] OR PORT A CATH INSERTION [id number] 10/20/2018 09:43:00 Document Registration [id number] 09/29/2018 08:55:00 Document Registration [id number] 09/08/2018 10:32:00 Document Registration [id number] 08/25/2018 09:07:00 Document Registration [id number] 08/18/2018 08:43:00 Document Registration [id number] 07/28/2018 09:20:00 Document Registration [id number] 07/23/2018 09:18:00 Document Registration [id number] 07/01/2018 14:15:00 Document Registration [id number] 04/19/2018 14:32:00 Document Registration [id number] 04/02/2018 08:44:00 Document Registration [id number] 03/12/2018 08:12:00 Document Registration [id number] 01/22/2018 08:27:00 Document Registration [id number] 01/15/2018 08:11:00 Document Registration [id number] 01/08/2018 08:19:00 Document Registration [id number] 01/01/2018 08:26:00 Document Registration [id number] 12/25/2017 08:35:00 Document Registration [id number] 12/18/2017 08:17:00 Document Registration [id number] 12/11/2017 08:30:00 Document Registration [id number] 12/04/2017 08:10:00 Document Registration [id number] 11/27/2017 08:16:00 Document Registration [id number] 11/20/2017 08:22:00 Document Registration [id number] 11/13/2017 08:11:00 Document Registration [id number] 11/06/2017 08:12:00 Document Registration [id number] 10/30/2017 08:24:00 Document Registration [id number] 10/23/2017 08:14:00 Document Registration [id number] 10/16/2017 08:33:00 Document Registration [id number] 10/09/2017 08:08:00 Document Registration [id number] 10/02/2017 08:46:00 Document Registration [id number] 09/25/2017 08:28:00 Document Registration [id number] 09/18/2017 08:53:00 Document Registration [id number] 09/17/2017 07:10:00 Document Registration [id number] 09/11/2017 08:52:00 Document Registration [id number] 09/04/2017 08:40:00 Document Registration [id number] 08/28/2017 08:31:00 Document Registration [id number] 08/21/2017 08:40:00 Document Registration [id number] 08:59:00 Document Registration
--- OUTSIDE RECORDS SUMMARY | 2018-11-16 11:41 | XMS REPORT | Continuity of Care Document ---
Author Author [facility] Organization [facility] Address Unknown Phone Unavailable Allergies Active Description Code Type Severity Reaction Onset Reported/Identified Relationship to Patient Clinical Status Yes No Known Medication Allergies Drug N/A N/A Yes *MRSA Miscellaneous Allergy N /A N/A 02/28/2010 Yes No Known Allergies [id number] Drug Allergy Unknown N/A 01/06/2017 Medications There [...] OF MIDDLE LOBE, BRONCHUS OR LUNG 02/10/2017 LZAAR, LAVELLE V Other D64.9 ANEMIA, UNSPECIFIED 02/10/2017 [...] Procedures Code [place] [address] CULTURE, BACTERIA, OTHER KAELA LADONNA ESCALANTE L 02/04/2013 15882 CULTURE TYPE, IMMUNOLOGIC KAELA ESCALANTE LADONNA L 02/04/2013 33864 SMEAR, GRAM STAIN [place] ROSIE ESCALANTEICA L 02/04/2013 61547 ROUTINE VENIPUNCTURE DREW LOPEZ MD 02/04/2014 14477 COMPREHEN METABOLIC PANEL DREW LOPEZ MD 02/04/2014 99938 LIPID PANEL DREW LOPEZ MD 02/04/2014 08431 COMPLETE CBC W/AUTO DIFF WBC DREW LOPEZ MD 02/04/2014 G0103 PSA SCREENING DREW LOPEZ MD 02/04/2014 99285 EXC FACE-MM B9+CHARLES 2.1-3 CM DREW LOPEZ MD 11/29/2015 83363 TISSUE EXAM BY PATHOLOGIST DREW LOPEZ MD 11/29/2015 L9999 CINDY ALERT CODE DREW LOPEZ MD 11/29/2015 68823 EMERGENCY DEPT VISIT DREW LOPEZ MD 01/05/2016 11860 EMERGENCY DEPT VISIT DREW LOPEZ MD 01/05/2016 36561 EXC H-F-NK-SP B9+CHARLES 1.1-2 JOHN GOLDSTEIN, DREW B 06/03/2016 56602 EXC FACE-MM B9+CHARLES 1.1-2 CM JOHN GOLDSTEIN, [facility] 06/03/2016 61703 EXC F/E/E/N/L MAL+MRG 1.1-[address] [facility] 06/03/2016 22813 ROUTINE VENIPUNCTURE JOHN GOLDSTEIN, [facility] 09/23/2016 84751 COMPREHEN METABOLIC PANEL [facility] 09/23/2016 79570 LIPID PANEL JOHN GOLDSTEIN, [facility] 09/23/2016 90220 ASSAY OF TOTAL TESTOSTERONE JOHN GOLDSTEIN [facility] 09/23/2016 08843 COMPLETE CBC W/AUTO DIFF WBC ROLO LOPEZ MDFER Jane 09/23/2016 G0103 PSA SCREENING WENDY LOPEZ MDNIFER Jane 09/23/2016 41288 ROUTINE VENIPUNCTURE [facility] 12/15/2016 26161 CHEST X-RAY 2VW FRONTAL& LATL [facility] 12/15/2016 89319 COMPREHEN METABOLIC PANEL [facility] 12/15/2016 72514 COMPLETE CBC W/AUTO DIFF WBC NAOMI [facility] 12/15/2016 25049 MYCOPLASMA ANTIBODY LEDY SALGADO MD 12/15/2016 79802 ROUTINE VENIPUNCTURE LEDY SALGADO MD 12/16/[address] THORAX W/O & W/DYE SURINDER SALGADO MDO Brianna 12/16/2016 81634 PROTHROMBIN TIME LEDY SALGADO MD 12/16/2016 21131 THROMBOPLASTIN TIME PARTIAL YAJAIRA SALGADO MDWALDO Brianna 12/16/2016 J7050 NORMAL SALINE SOLUTION INFUS NAOMI GOLDSTEIN, LEDY Brianna 12/16/2016 Q9967 LOCM 300-399MG/ML IODINE, 1ML LEDY SALGADO MD 12/16/2016 67623 PERCUT BX LUNG/MEDIASTINUM LEDY SALGADO MD 12/17/2016 27846 CHEST X-RAY 1 VIEW FRONTAL LETA DANGELO MD 12/17/[address] SCAN FOR NEEDLE BIOPSY NAOMI GOLDSTEIN, [facility] 12/17/2016 67037 CULTURE OTHR SPECIMN AEROBIC LETA DANGELO MD 12/17/2016 10510 SMEAR GRAM STAIN LETA DANGELO MD 12/17/2016 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 LETA DANGELO MD 12/17/2016 J7030 NORMAL SALINE SOLUTION INFUS LETA DANGELO MD 12/17/2016 65499 ROUTINE VENIPUNCTURE NAOMI GOLDSTEIN, [facility] 12/24/2016 90136 WITHDRAWAL OF ARTERIAL BLOOD NAOMI GOLDSTEIN, [facility] 12/24/2016 20653 COMPREHEN METABOLIC PANEL NAOMI GOLDSTEIN, [facility] 12/24/2016 86105 BLOOD GASES ANY COMBINATION NAOMI GOLDSTEIN, [facility] 12/24/2016 71057 ASSAY OF LACTIC ACID NAOMI GOLDSTEIN, [facility] 12/24/2016 13794 COMPLETE CBC W/AUTO DIFF WBC NAOMI GOLDSTEIN, [facility] 12/24/2016 65322 ROUTINE VENIPUNCTURE NAGI GOLDSTEIN, [facility] V 12/25/2016 37355 X-RAY EYE FOR FOREIGN BODY NAGI GOLDSTEIN, [facility] V 12/25/2016 13038 MRI BRAIN STEM W/O & W/DYE NAGI GOLDSTEIN, [facility] V 12/25/2016 36762 COMPREHEN METABOLIC PANEL NAGI GOLDSTEIN, [facility] V 12/25/2016 15607 LACTATE (LD) (LDH) ENZYME NAGI GOLDSTEIN, [place] V 12/25/2016 00907 COMPLETE CBC W/AUTO DIFF WBC NAGI GOLDSTEIN, [place] V 12/25/2016 A9579 ABHISHEK-BASE MR CONTRAST NOS, 1ML NAGI GOLDSTEIN, [place] V 12/25/2016 06912 CHEST X-RAY 2VW FRONTAL& LATL NAOMI GOLDSTEIN, LEDY C 03/09/2017 15932 ROUTINE VENIPUNCTURE NAGI GOLDSTEIN, [place] V 04/08/[address] THORAX W/DYE NAGI GOLDSTEIN, [place] V 04/08/2017 50652 COMPREHEN METABOLIC PANEL NAGI GOLDSTEIN, [place] V 04/08/2017 96063 LACTATE (LD) (LDH) ENZYME NAGI GOLDSTEIN, [place] V 04/08/2017 80054 BL SMEAR W/DIFF WBC COUNT NAGI GOLDSTEIN, [facility] V 04/08/2017 54631 COMPLETE CBC AUTOMATED NAGI GOLDSTEIN, [facility] V 04/08/2017 Q9967 LOCM 300-399MG/ML IODINE, 1ML NAGI GOLDSTEIN, [facility] V 04/08/2017 26429 ROUTINE VENIPUNCTURE NAGI GOLDSTEIN, [facility] V 07/27/[address] THORAX W/DYE NAGI GOLDSTEIN, [facility] V 07/27/2017 39058 COMPREHEN METABOLIC PANEL NAGI GOLDSTEIN, [facility] V 07/27/2017 85293 LACTATE (LD) (LDH) ENZYME NAGI GOLDSTEIN, [facility] V 07/27/2017 32798 COMPLETE CBC W/AUTO DIFF WBC NAGI GOLDSTEIN, [facility] V 07/27/2017 Q9967 LOCM 300-399MG/ML IODINE, 1ML NAGI GOLDSTEIN, [facility] V 07/27/2017 18992 ASPIRATE PLEURA W/ IMAGING NAGI GOLDSTEIN, [facility] V 08/06/2017 68614 ROUTINE VENIPUNCTURE NAGI GOLDSTEIN, [facility] V 08/06/2017 61939 GLUCOSE OTHER FLUID LETA DANGELO MD 08/06/2017 10388 LACTATE (LD) (LDH) ENZYME LETA DANGELO MD 08/06/2017 72610 ASSAY OF PROTEIN OTHER LETA DANGELO MD 08/06/2017 80219 COMPLETE CBC W/AUTO DIFF WBC NAGI GOLDSTEIN, [facility] V 08/06/2017 09515 PROTHROMBIN TIME NAGI GOLDSTEIN, [facility] V 08/06/2017 97402 THROMBOPLASTIN TIME PARTIAL NAGI GOLDSTEIN, [facility] V 08/06/2017 09112 CYTOPATH CONCENTRATE TECH NAGI GOLDSTEIN, [facility] V 08/06/2017 52624 US EXAM ABDO BACK WALL ZACARIAS [place] 09/21/2017 06485 MRI BRAIN STEM W/O & W/DYE NAGI GOLDSTEIN, [facility] V 02/02/2018 A9579 ABHISHEK-BASE MR CONTRAST NOS, 1ML NAGI GOLDSTEIN, [facility] V 02/02/2018 53731 BONE IMAGING WHOLE BODY LANCE SANTAMARIA MD 02/10/2018 A9503 TC99M MEDRONATE LANCE SANTAMARIA MD 02/10/2018 15171 ROUTINE VENIPUNCTURE NAGI GOLDSTEIN, [place] V 02/22/2018 19736 COMPREHEN METABOLIC PANEL NAGI GOLDSTEIN, [place] V 02/22/2018 72784 LACTATE (LD) (LDH) ENZYME NAGI GOLDSTEIN, [facility] V 02/22/2018 47476 ASSAY OF TOTAL THYROXINE NAGI GOLDSTEIN, [facility] V 02/22/2018 06735 ASSAY OF FREE THYROXINE NAGI GOLDSTEIN, [facility] V 02/22/2018 21797 ASSAY THYROID STIM HORMONE NAGI GOLDSTEIN, [facility] V 02/22/2018 44385 COMPLETE CBC W/AUTO DIFF WBC NAGI GOLDSTEIN, [facility] V 02/22/2018 78114 X-RAY EXAM CHEST 2 VIEWS NAGI GOLDSTEIN, [facility] V 04/05/2018 46453 X-RAY EXAM CHEST 2 VIEWS JOHN GOLDSTEIN, DREW Jane 04/20/2018 81952 ASPIRATE PLEURA W/ IMAGING ANTOLIN GOLDSTEIN, LETA Shah 04/22/2018 16775 ROUTINE VENIPUNCTURE ANTOLIN GOLDSTEIN, LETA Shah 04/22/2018 05717 BL SMEAR W/DIFF WBC COUNT ANTOLIN GOLDSTEIN, LETA Shah 04/22/2018 43041 COMPLETE CBC AUTOMATED ANTOLIN GOLDSTEIN, LETA Shah 04/22/2018 56649 PROTHROMBIN TIME ANTOLIN GOLDSTEIN, LETA Shah 04/22/2018 34352 THROMBOPLASTIN TIME PARTIAL ANTOLIN GOLDSTEIN, LETA Shah 04/22/2018 73283 ROUTINE VENIPUNCTURE [place] 05/21/2018 48159 METABOLIC PANEL TOTAL CA [place] 05/21/2018 29381 ROUTINE VENIPUNCTURE JOHN GOLDSTEIN, DREW Lara 05/24/2018 25267 METABOLIC PANEL TOTAL CA JOHN GOLDSTEIN, DREW Lara 05/24/2018 81647 ROUTINE VENIPUNCTURE NAGI GOLDSTEIN, [place] V 06/02/2018 12835 COMPREHEN METABOLIC PANEL NAGI GOLDSTEIN, [place] V 06/02/2018 56582 LACTATE (LD) (LDH) ENZYME NAGI GOLDSTEIN, [place] V 06/02/2018 51313 BL SMEAR W/DIFF WBC COUNT NAGI GOLDSTEIN, [facility] V 06/02/2018 22012 COMPLETE CBC AUTOMATED NAGI GOLDSTEIN, [facility] V 06/02/2018 20138 ROUTINE VENIPUNCTURE NAGI GOLDSTEIN, [place] V 06/10/2018 59797 COMPREHEN METABOLIC PANEL NAGI GOLDSTEIN, [place] V 06/10/2018 34959 LACTATE (LD) (LDH) ENZYME NAGI GOLDSTEIN, [facility] V 06/10/2018 02013 BL SMEAR W/DIFF WBC COUNT NAGI GOLDSTEIN, [facility] V 06/10/2018 79000 COMPLETE CBC AUTOMATED NAGI GOLDSTEIN, [facility] V 06/10/2018 76843 ROUTINE VENIPUNCTURE NAGI GOLDSTEIN, [facility] V 06/17/2018 62490 COMPREHEN METABOLIC PANEL NAGI GOLDSTEIN, [facility] V 06/17/2018 66622 LACTATE (LD) (LDH) ENZYME NAGI GOLDSTEIN, [facility] V 06/17/2018 40775 BL SMEAR W/DIFF WBC COUNT NAGI GOLDSTEIN, [facility] V 06/17/2018 36013 COMPLETE CBC AUTOMATED NAGI GOLDSTEIN, [facility] V 06/17/2018 60012 ROUTINE VENIPUNCTURE NAGI GOLDSTEIN, [facility] V 06/25/2018 36084 BL SMEAR W/DIFF WBC COUNT NAGI GOLDSTEIN, [facility] V 06/25/2018 72717 COMPLETE CBC AUTOMATED NAGI GOLDSTEIN, [facility] V 06/25/[address] HEAD/BRAIN W/O DYE GABRIELA GOLDSTEIN, CATRACHITO Swan 06/26/2018 54750 X-RAY EXAM CHEST 2 VIEWS GABRIELA GOLDSTEIN, [place] Swan 06/26/[address] ANGIOGRAPHY CHEST GABRIELA GOLDSTEIN, [place] Swan 06/26/2018 33362 COMPREHEN METABOLIC PANEL GABRIELA GOLDSTEIN, [place] Swan 06/26/2018 73229 ASSAY OF MAGNESIUM GABRIELA GOLDSTEIN, [place] Swan 06/26/2018 88217 ASSAY OF PHOSPHORUS GABRIELA GOLDSTEIN, [place]O Swan 06/26/2018 54612 ASSAY OF TROPONIN QUANT GABRIELA GOLDSTEIN, [place]ACH[place]O Swan 06/26/2018 85712 BL SMEAR W/DIFF WBC COUNT GABRIELA GOLDSTEIN, [place] Swan 06/26/2018 34449 COMPLETE CBC AUTOMATED GABRIELA GOLDSTEIN, [place] Swan 06/26/2018 80801 PROTHROMBIN TIME GABRIELA GOLDSTEIN, [place] Swan 06/26/2018 12541 THROMBOPLASTIN TIME PARTIAL GABRIELA GOLDSTEIN, [place] Swan 06/26/2018 05262 ELECTROCARDIOGRAM TRACING GABRIELA GOLDSTEIN, [place]O Swan 06/26/2018 20353 THER/PROPH/DIAG INJ IV PUSH GABRIELA GOLDSTEIN, [place]O Swan 06/26/2018 63357 TX/PRO/DX INJ NEW DRUG JEAN CLAUDE OCHOA MD, [place] Sosa 06/26/2018 35723 EMERGENCY DEPT VISIT GABRIELA GOLDSTEIN, [place] Swan 06/26/2018 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 SAMINA OCHOA MD, [place] Sosa 06/26/2018 Q9967 LOCM 300-399MG/ML IODINE, 1ML GABRIELA GOLDSTEIN, [place] Sosa 06/26/[address] HEAD/BRAIN W/O DYE GABRIELA GOLDSTEIN, CATRACH[place]O Swan 06/26/2018 75131 X-RAY EXAM CHEST 2 VIEWS GABRIELA GOLDSTEIN, [place] Swan 06/26/[address] ANGIOGRAPHY CHEST GABRIELA GOLDSTEIN, [place]RACH[place]O Swan 06/26/2018 52545 COMPREHEN METABOLIC PANEL GABRIELA GOLDSTEIN, [place] Swan 06/26/2018 50474 ASSAY OF MAGNESIUM GABRIELA GOLDSTEIN, [place] Swan 06/26/2018 69560 ASSAY OF PHOSPHORUS GABRIELA GOLDSTEIN, CATRACH[place]O Sosa 06/26/2018 95140 ASSAY OF TROPONIN QUANT GABRIELA GOLDSTEIN, [place]O Swan 06/26/2018 10232 BL SMEAR W/DIFF WBC COUNT GABRIELA GOLDSTEIN, [place] Swan 06/26/2018 69064 COMPLETE CBC AUTOMATED GABRIELA GOLDSTEIN, [place]O Sosa 06/26/2018 60726 PROTHROMBIN TIME GABRIELA GOLDSTEIN, CAT[place]O Sosa 06/26/2018 38527 THROMBOPLASTIN TIME PARTIAL GABRIELA GOLDSTEIN, [place]O Sosa 06/26/2018 40291 ELECTROCARDIOGRAM TRACING GABRIELA GOLDSTEIN, [place] Swan 06/26/2018 64238 THER/PROPH/DIAG INJ IV PUSH JOHN GOLDSTEIN, DREW Lara 06/26/2018 31715 TX/PRO/DX INJ NEW DRUG JEAN CLAUDE OCHOA MD, [place]O Swan 06/26/2018 54061 TX/PRO/DX INJ SAME DRUG LAMONT LOPEZ MD, DREW Lara 06/26/2018 48297 EMERGENCY DEPT VISIT GABRIELA GOLDSTEIN, [place] Swan 06/26/2018 A9270 NON-COVERED ITEM OR SERVICE JOHN GOLDSTEIN, DREW Lara 06/26/2018 G0378 HOSPITAL OBSERVATION PER HR JOHN GOLDSTEIN, DREW Lara 06/26/2018 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 INJECTION GABRIELA GOLDSTEIN, [place] Swan 06/26/2018 Q9967 LOCM 300-399MG/ML MELANY, 1MSosa OCHOA MD, [place]O Swan 06/26/2018 01380 CCIIV4 VAC NO PRSV 0.5 ML IM JOHN GOLDSTEIN, DREW Lara 06/27/2018 64728 AIRWAY INHALATION TREATMENT ROLO LOPEZ MDFER Jane 06/27/2018 35465 TX/PRO/DX INJ SAME DRUG 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 JOHN GOLDSTEIN DREW Jane 06/27/2018 A9270 NON-COVERED ITEM OR SERVICE [facility] 06/27/2018 G0008 ADMIN INFLUENZA VIRUS VAC [facility] 06/27/2018 J1642 INJ HEPARIN SODIUM PER 10 U ROLO LOPEZ MDFER Jane 06/27/2018 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 INJECTION [facility] 06/27/2018 J7030 NORMAL SALINE SOLUTION INFUS JOHN GOLDSTEIN, DREW B 06/27/2018 05589 ROUTINE VENIPUNCTURE NAGI GOLDSTEIN, [facility] V 07/09/2018 11568 COMPREHEN METABOLIC PANEL NAGI GOLDSTEIN, [facility] V 07/09/2018 38919 LACTATE (LD) (LDH) ENZYME NAGI GOLDSTEIN, [facility] V 07/09/2018 88863 BL SMEAR W/DIFF WBC COUNT NAGI GOLDSTEIN, [facility] V 07/09/2018 61252 COMPLETE CBC AUTOMATED NAGI GOLDSTEIN, [facility] V 07/09/2018 20792 ROUTINE VENIPUNCTURE NAGI GOLDSTEIN, [facility] V 07/21/2018 10123 BL SMEAR W/DIFF WBC COUNT NAGI GOLDSTEIN, [facility] V 07/21/2018 06163 COMPLETE CBC AUTOMATED NAGI GOLDSTEIN, [facility] V 07/21/2018 82017 ROUTINE VENIPUNCTURE NAGI GOLDSTEIN, [facility] V 08/04/2018 95364 BL SMEAR W/DIFF WBC COUNT NAGI GOLDSTEIN, [facility] V 08/04/2018 98828 COMPLETE CBC AUTOMATED NAGI GOLDSTEIN, [facility] V 08/04/2018 00502 ROUTINE VENIPUNCTURE NAGI GOLDSTEIN, [facility] V 08/11/2018 25699 COMPREHEN METABOLIC PANEL NAGI GOLDSTEIN, [place] V 08/11/2018 64972 LACTATE (LD) (LDH) ENZYME NAGI GOLDSTEIN, [facility] V 08/11/2018 56805 COMPLETE CBC W/AUTO DIFF WBC NAGI GOLDSTEIN, [place] V 08/11/[address] THORAX W/DYE NAGI GOLDSTEIN, [place] V 08/16/2018 Q9967 LOCM 300-399MG/ML IODINE, 1ML NAGI GOLDSTEIN, [facility] V 08/16/2018 63996 ROUTINE VENIPUNCTURE NAGI GOLDSTEIN, [facility] V 09/01/2018 57880 COMPREHEN METABOLIC PANEL NAGI GOLDSTEIN, [facility] V 09/01/2018 39925 LACTATE (LD) (LDH) ENZYME NAGI GOLDSTEIN, [facility] V 09/01/2018 89119 COMPLETE CBC W/AUTO DIFF WBC NAGI GOLDSTEIN, [facility] V 09/01/2018 44226 ROUTINE VENIPUNCTURE NAGI GOLDSTEIN, [facility] V 09/15/2018 71779 BL SMEAR W/DIFF WBC COUNT NAGI GOLDSTEIN, [facility] V 09/15/2018 09378 COMPLETE CBC AUTOMATED NAGI GOLDSTEIN, [facility] V 09/15/2018 20019 ROUTINE VENIPUNCTURE NAGI GOLDSTEIN, [facility] V 09/22/2018 21590 COMPREHEN METABOLIC PANEL NAGI GOLDSTEIN, [facility] V 09/22/2018 50937 LACTATE (LD) (LDH) ENZYME NAGI GOLDSTEIN, [facility] V 09/22/2018 07708 COMPLETE CBC W/AUTO DIFF WBC NAGI GOLDSTEIN, [facility] V 09/22/2018 15355 ROUTINE VENIPUNCTURE NAGI GOLDSTEIN, [facility] V 10/06/2018 41148 BL SMEAR W/DIFF WBC COUNT NAGI GOLDSTEIN, [facility] V 10/06/2018 33983 COMPLETE CBC AUTOMATED NAGI GOLDSTEIN, [facility] V 10/06/2018 82111 ROUTINE VENIPUNCTURE NAGI GOLDSTEIN, [facility] V 10/13/2018 05776 COMPREHEN METABOLIC PANEL NAGI GOLDSTEIN, [facility] V 10/13/2018 71405 LACTATE (LD) (LDH) ENZYME NAGI GOLDSTEIN, [facility] V 10/13/2018 92440 COMPLETE CBC W/AUTO DIFF WBC NAGI GOLDSTEIN, [facility] V 10/13/2018 Results Test Result Range Wound Culture - 02/04/13 16:47 Wound Culture SMR COMPLETE BLOOD COUNT - 02/04/14 09:13 Platelet 271 10^3u 142-424 MPV 9.1 FL 9.4-12.4 Dade # 0.90 10^3u 0.0-1.0 RBC 5.21 10^6u 4.04-6.13 Dade % 6.6 % 0-12 RDW 13.9 % [...] Status Pt. Type Provider Facility Loc./Unit Complaint [id number] 10/13/2018 11:16:00 10/13/2018 11:16:00 DIS Outpatient LAZAR MD, [facility] [id number] 10/06/2018 11:36:00 10/06/2018 11:36:00 DIS Outpatient NAGI GOLDSTEIN, [place] [id number] 09/22/2018 10:55:00 09/22/2018 10:55:00 DIS Outpatient NAGI GOLDSTEIN, [place] [id number] 09/15/2018 10:06:00 09/15/2018 10:06:00 DIS Outpatient NAGI GOLDSTEIN, [place] [id number] 09/01/2018 09:29:00 09/01/2018 09:29:00 DIS Outpatient NAGI GOLDSTEIN, [place] [id number] 08/16/2018 09:02:00 08/16/2018 09:02:00 DIS Outpatient NAGI GOLDSTEIN, [place] [id number] 08/11/2018 09:33:00 08/11/2018 09:33:00 DIS Outpatient NAGI GOLDSTEIN [place] [id number] 08/04/2018 12:13:00 08/04/2018 12:13:00 DIS Outpatient NAGI GOLDSTEIN, [place] [id number] 07/21/2018 15:18:00 07/21/2018 15:18:00 DIS Outpatient NAGI GOLDSTEIN, [place] [facility] [id number] 07/09/2018 12:36:00 07/09/2018 12:36:00 DIS Outpatient NAGI GOLDSTEIN, [place] [id number] 06/26/2018 16:36:00 06/27/2018 14:55:00 DIS Inpatient JOHN GOLDSTEIN, DREW Lara [facility] [id number] 06/26/2018 13:14:00 06/26/2018 16:35:00 DIS Emergency GABRIELA GOLDSTEIN, [place]O Swan ER [id number] 06/25/2018 13:23:00 06/25/2018 13:23:00 DIS Outpatient [facility] LAB [id number] 06/17/2018 12:34:00 06/17/2018 12:34:00 DIS Outpatient NAGI GOLDSTEIN, [place] [facility] [id number] 06/10/2018 13:39:00 06/10/2018 13:39:00 DIS Outpatient NAGI GOLDSTEIN, [place] [id number] 06/02/2018 11:59:00 06/02/2018 11:59:00 DIS Outpatient NAGI GOLDSTEIN [place] [facility] [id number] 05/24/2018 11:28:00 05/24/2018 11:28:00 DIS Outpatient DREW LOPEZ MD LAB [id number] 05/21/2018 12:38:00 05/21/2018 12:38:00 DIS Outpatient [facility] [place] LAB [id number] 04/22/2018 09:54:00 04/22/2018 09:54:00 DIS Outpatient ANTOLIN GOLDSTEIN, LETA Shah RAD [id number] 04/20/2018 11:20:00 04/20/2018 11:20:00 DIS Outpatient DREW LOPEZ MD RAD [id number] 04/05/2018 12:04:00 04/05/2018 12:04:00 DIS Outpatient NAGI GOLDSTEIN, [place] [id number] 02/22/2018 15:37:00 02/22/2018 15:37:00 DIS Outpatient NAGI GOLDSTEIN, [place] [id number] 02/10/2018 07:53:00 02/10/2018 07:53:00 DIS Outpatient LANCE SANTAMARIA MD RAD [id number] 02/02/2018 12:17:00 02/02/2018 12:17:00 DIS Outpatient NAGI GOLDSTEIN, [place] [id number] 09/21/2017 08:04:00 09/21/2017 08:04:00 DIS Outpatient SOLE [place]AD[place]ICK [facility] RAD [id number] 08/06/2017 08:06:00 08/06/2017 08:06:00 DIS Outpatient LETA DANGELO MD [facility] RAD [id number] 07/27/2017 08:22:00 07/27/2017 08:22:00 DIS Outpatient NAGI GOLDSTEIN, [place] V [facility] RAD [id number] 04/08/2017 12:33:00 04/08/2017 12:33:00 DIS Outpatient NAGI GOLDSTEIN, [place] V [facility] RAD [id number] 03/09/2017 12:26:00 03/09/2017 12:26:00 DIS Outpatient NAOMI GOLDSTEIN, LEDY [facility] RAD [id number] 12/25/2016 10:52:00 12/25/2016 10:52:00 DIS Outpatient NAGI GOLDSTEIN, [place] V [facility] RAD [id number] 12/24/2016 15:22:00 12/24/2016 15:22:00 DIS Outpatient NAOMI GOLDSTEIN, [facility] LAB [id number] 12/17/2016 08:00:00 12/17/2016 08:00:00 DIS Outpatient ANTOLIN GOLDSTEIN, [facility] RAD [id number] 12/16/2016 11:15:00 12/16/2016 11:15:00 DIS Outpatient NAOMI GOLDSTEIN, [facility] RAD [id number] 12/15/2016 11:13:00 12/15/2016 11:13:00 DIS Outpatient NAOMI GOLDSTEIN, [facility] RAD [id number] 09/23/2016 07:21:00 09/23/2016 07:21:00 DIS Outpatient JOHN GOLDSTEIN, [facility] LAB [id number] 06/03/2016 07:54:00 06/03/2016 09:00:00 DIS Outpatient JOHN GOLDSTEIN, [facility] DAYSTA [id number] 01/05/2016 10:40:00 01/06/2016 22:18:00 DIS Emergency JOHN GOLDSTEIN, [facility] ER [id number] 01/05/2016 10:40:00 01/05/2016 10:40:00 DIS Outpatient JOHN GOLDSTEIN, [facility] OTHER [id number] 11/29/2015 08:15:00 11/29/2015 09:45:00 DIS Outpatient JOHN GOLDSTEIN, [facility] OTHER [id number] 02/09/2014 15:01:00 02/09/2014 15:38:00 DIS Outpatient JOHN GOLDSTEIN, [facility] OTHER [id number] 02/04/2014 09:04:00 02/04/2014 09:04:00 DIS Outpatient JOHN GOLDSTEIN, [facility] OTHER [id number] 02/04/2013 16:41:00 02/04/2013 16:41:00 DIS Outpatient LADONNA RODRIGUEZ [facility] ABILIO [id number] 11/08/2018 12:36:00 Document Registration [id number] 11/08/2018 09:22:00 Document Registration [id number] 11/08/2018 05:43:00 Document Registration [id number] 11/02/2018 11:05:00 Document Registration [id number] 10/27/2018 12:38:00 Document Registration [id number] 10/20/2018 11:12:00 Document Registration [id number] 09/02/2018 12:16:00 Document Registration [id number] 08/19/2018 17:59:00 Document Registration [id number] 08/06/2018 10:05:00 Document Registration [id number] 07/28/2018 11:38:00 Document Registration [id number] 06/28/2018 11:32:00 Document Registration [id number] 06/28/2018 09:40:00 Document Registration [id number] 04/19/2018 13:17:00 Document Registration [id number] 02/15/2018 10:51:00 Document Registration [id number] 02/18/2018 13:09:01 ACT Unknown [id number] 03/02/2018 15:43:58 03/02/2018 23:59:59 DIS Outpatient Lance Santamaria [facility] [place] RAD ct sim [id number] 02/05/2018 14:23:16 02/05/2018 23:59:59 DIS Outpatient Lance Santamaria [facility] RAD head/neck for metastatic lung c [id number] 01/02/2017 14:03:20 01/02/2017 23:59:59 CLS Outpatient LIS ACHARYA [facility] [place] RAD chest for lung cancer [id number] 11/09/2017 16:00:00 Document Registration [id number] 06/01/2017 09:06:00 06/01/2017 23:59:59 CLS Outpatient [facility] LAB [id number] 02/25/2017 08:41:00 02/25/2017 23:59:59 CLS Outpatient [facility] LAB [id number] 02/17/2017 08:52:00 02/17/2017 23:59:59 CLS Outpatient [facility] LAB [id number] 02/10/2017 08:44:00 02/10/2017 23:59:59 CLS Outpatient [facility] LAB [id number] 02/03/2017 11:25:00 02/03/2017 23:59:59 CLS Outpatient [facility] LAB [id number] 01/27/2017 09:50:00 01/27/2017 23:59:59 CLS Outpatient [facility] LAB [id number] 01/20/2017 13:17:00 01/20/2017 23:59:59 CLS Outpatient [facility] LAB [id number] 01/20/2017 08:57:00 01/20/2017 23:59:59 [facility] Outpatient [facility] NPLAB [id number] 01/13/2017 09:55:00 01/13/2017 23:59:59 [facility] Outpatient [facility] NPLAB [id number] 01/06/2017 06:38:00 01/06/2017 08:34:00 [facility] Outpatient [facility] OR [place] A CATH INSERTION [id number] 10/20/2018 09:43:00 Document Registration [id number] 09/29/2018 08:55:00 Document Registration [id number] 09/08/2018 10:32:00 Document Registration [id number] 08/25/2018 09:07:00 Document Registration [id number] 08/18/2018 08:43:00 Document Registration [id number] 07/28/2018 09:20:00 Document Registration [id number] 07/23/2018 09:18:00 Document Registration [id number] 07/01/2018 14:15:00 Document Registration [id number] 04/19/2018 14:32:00 Document Registration [id number] 04/02/2018 08:44:00 Document Registration [id number] 03/12/2018 08:12:00 Document Registration [id number] 01/22/2018 08:27:00 Document Registration [id number] 01/15/2018 08:11:00 Document Registration [id number] 01/08/2018 08:19:00 Document Registration [id number] 01/01/2018 08:26:00 Document Registration [id number] 12/25/2017 08:35:00 Document Registration [id number] 12/18/2017 08:17:00 Document Registration [id number] 12/11/2017 08:30:00 Document Registration [id number] 12/04/2017 08:10:00 Document Registration [id number] 11/27/2017 08:16:00 Document Registration [id number] 11/20/2017 08:22:00 Document Registration [id number] 11/13/2017 08:11:00 Document Registration [id number] 11/06/2017 08:12:00 Document Registration [id number] 10/30/2017 08:24:00 Document Registration [id number] 10/23/2017 08:14:00 Document Registration [id number] 10/16/2017 08:33:00 Document Registration [id number] 10/09/2017 08:08:00 Document Registration [id number] 10/02/2017 08:46:00 Document Registration [id number] 09/25/2017 08:28:00 Document Registration [id number] 09/18/2017 08:53:00 Document Registration [id number] 09/17/2017 07:10:00 Document Registration [id number] 09/11/2017 08:52:00 Document Registration [id number] 09/04/2017 08:40:00 Document Registration [id number] 08/28/2017 08:31:00 Document Registration [id number] 08/21/2017 08:40:00 Document Registration [id number] 2017 08:59:00 Document Registration
== END 2018-11-11 06:57 | disposition home or self-care (01) ==
LOC: UNDOADMOB 16:45 → SDC 16:45 → 4TH 16:45 → UNDODISOB 11-11 07:45 → EDSTATUS 11-16 11:33
PROVIDERS: ADMIT Otolaryngology Otolaryngology/Facial Plastic Surgery; ATTEND Otolaryngology Otolaryngology/Facial Plastic Surgery
DX: R04.0 Epistaxis (principal); D62 Acute posthemorrhagic anemia; D64.81 Anemia due to antineoplastic chemotherapy; C34.90 Malignant neoplasm of unspecified part of unspecified bronchus or lung; F17.290 Nicotine dependence, other tobacco product, uncomplicated; H44.9 Unspecified disorder of globe; I10 Essential (primary) hypertension; K21.9 Gastro-esophageal reflux disease without esophagitis; Z85.828 Personal history of other malignant neoplasm of skin; Z92.3 Personal history of irradiation; Z92.21 Personal history of antineoplastic chemotherapy; E78.5 Hyperlipidemia, unspecified; J90 Pleural effusion, not elsewhere classified; Z79.82 Long term (current) use of aspirin; Z79.899 Other long term (current) drug therapy
CPT/HCPCS: 36415; 71045; 80048; 80053; 85007; 85014; 85018; 85025; 85027; 86850; 86900; 86901; 86920; 94640; 99211; G0378